=== PATIENT | male | born 1975 | race Caucasian/White ===

== ENCOUNTER → 2016-09-15 | Outpatient (CLI) | payer OTHER ==
[~2016-09-15] MED LIST: CENTTAB47 PO; HYDR-3713 PO; OXYC-299 PO; PERC5TAB6 PO
[2016-09-15 13:19] LABS: ALBUMIN 3.8 GM/DL (3.2-5.2); ALBUMIN/GLOBULIN RATIO 1.31 (1.00-1.93); ALKALINE PHOSPHATASE 74 U/L (45-117); ALT/SGPT 31 U/L (12-78); ANION GAP 5 MEQ/L (8-16); AST/SGOT 21 U/L (15-37); BILIRUBIN,TOTAL 0.2 MG/DL (0.2-1.0); BLOOD UREA NITROGEN 8 MG/DL (7-18); CALCIUM LEVEL 8.9 MG/DL (8.5-10.1); CARBON DIOXIDE LEVEL 33 MEQ/L (21-32); CHLORIDE LEVEL 106 MEQ/L (98-107); CHOLESTEROL LEVEL 161 MG/DL (<200); CREATININE FOR GFR 0.98 MG/DL (0.70-1.30); GLOMERULAR FILTRATION RATE > 60.0 (>60); GLUCOSE, FASTING 103 MG/DL (70-105); POTASSIUM SERUM 4.7 MEQ/L (3.5-5.1); SODIUM LEVEL 144 MEQ/L (136-145); TOTAL PROTEIN 6.7 GM/DL (6.4-8.2); TRIGLYCERIDES LEVEL 592 MG/DL (<150)
== END ==
LOC: M LRY 11:08
PROVIDERS: ATTEND Internal Medicine Cardiovascular Disease
DX: I48.91 Unspecified atrial fibrillation (principal)

== ENCOUNTER → 2017-01-25 | Outpatient (CLI) | payer OTHER ==
[~2017-01-25] MED LIST changes: +OXYC-141 PO; -OXYC-299 PO; +PERC5TAB12 PO; -PERC5TAB6 PO
[2017-01-25 14:17] LABS: ALBUMIN 4.3 GM/DL (3.2-5.2); ALBUMIN/GLOBULIN RATIO 1.39 (1.00-1.93); ALKALINE PHOSPHATASE 71 U/L (45-117); ALT/SGPT 37 U/L (12-78); ANION GAP 6 MEQ/L (8-16); AST/SGOT 19 U/L (15-37); BILIRUBIN,TOTAL 0.5 MG/DL (0.2-1.0); BLOOD UREA NITROGEN 12 MG/DL (7-18); CARBON DIOXIDE LEVEL 31 MEQ/L (21-32); CHLORIDE LEVEL 105 MEQ/L (98-107); CHOLESTEROL LEVEL 181 MG/DL (<200); CREATININE FOR GFR 0.91 MG/DL (0.70-1.30); GLOMERULAR FILTRATION RATE > 60.0 (>60); GLUCOSE, FASTING 86 MG/DL (70-105); POTASSIUM SERUM 4.8 MEQ/L (3.5-5.1); SODIUM LEVEL 142 MEQ/L (136-145); TOTAL PROTEIN 7.4 GM/DL (6.4-8.2); TRIGLYCERIDES LEVEL 369 MG/DL (<150)
== END ==
LOC: M LRY 11:01
PROVIDERS: ATTEND Internal Medicine Cardiovascular Disease
DX: E78.1 Pure hyperglyceridemia (principal)

== ENCOUNTER → 2017-02-14 | Outpatient (CLI) | payer OTHER ==
[2017-02-14 18:21] LABS: BLOOD UREA NITROGEN 12 MG/DL (7-18); CREATININE FOR GFR 0.97 MG/DL (0.70-1.30); GLOMERULAR FILTRATION RATE > 60.0 (>60)
== END ==
LOC: M LRY 12:48
PROVIDERS: ATTEND Physical Medicine & Rehabilitation
DX: M47.892 Other spondylosis, cervical region (principal)

== ENCOUNTER → 2017-04-27 | Outpatient (CLI) | payer OTHER ==
--- NOTE | 2017-05-09 23:36 | ECWPNPC ---
PATIENT NAME: BILL MICHAUD : 1975 GENDER: MALE VISIT DATE: 04/27/2017 DISCHARGE DATE: 04/27/17 1646 VISIT LOCKED DATE TIME: PHYSICIAN: GABY RAY RESOURCE: GABY RAY REASON FOR APPOINTMENT 1. NECK HISTORY OF PRESENT ILLNESS FALL RISK SCREENING: SCREENING :NO FALLS IN THE PAST YEAR 41 Y/O PATIENT WITH A HISTORY OF NECK PAIN. PATIENT DESCRIBES THE PAIN ACHING, SHARP, STABBING, SHOOTING, AND HAVING IT ALL THE TIME WITH A PAIN SCALE OF 6/10. PATIENT REPORTS THE PAIN IN HIS NECK TRAVELS UP THE BACK OF HIS HEAD AND THAT HE HAS NUMBNESS DOWN HIS LEFT ARM MAINLY IN HIS PINKIE. PATIENT WAS EMPOYED BY [employer]. PATIENT STATES THAT ON April HE WAS WORKING WITH [employer] AND IT FELL ON HIS HEAD/NECK. PATIENT HAD PHYSICAL THERAPY FOR 1 YEAR AND STATES THAT IT WORKED, BUT WHEN HE STOPPED BEING ABLE TO GO THE PAIN CAME BACK. PATIENT HAD NECK SURGERY IN APRIL 2015, HE STATES THAT AFTER 6 MONTHS HE WAS GOOD BUT NOW THE PAIN IS COMING BACK. PATIENT DENIES UNEXPLAINABLE WEIGHT LOSS, FEVER, CHILLS, NEW CHANGES ON HIS URINARY OR BOWEL CONTROL. PAIN SCREENING: PATIENT HAS A COMPLAINT OF ACUTE OR CHRONIC PAIN :YES CURRENT MEDICATIONS TAKING METOPROLOL TARTRATE 25 MG TABLET 1 TABLET WITH FOOD ORALLY BID TAKING AMITRIPTYLINE HCL 10 MG TABLET 1-2 TABLETS ORALLY QHS TAKING MOBIC 15 MG TABLET 1 TABLET ORALLY ONCE A DAY PRN TAKING TIZANIDINE HCL 4 MG TABLET 1 TABLET NEEDED ORALLY THREE TIMES A DAY PRN NOT-TAKING GABAPENTIN 300 MG CAPSULE 1 CAPSULE ORALLY THREE TIMES A DAY NOT-TAKING KETOROLAC TROMETHAMINE 10 MG TABLET 1 TABLET WITH FOOD OR MILK NEEDED ORALLY EVERY 6 HRS MEDICATION LIST REVIEWED AND RECONCILED WITH THE PATIENT PAST MEDICAL HISTORY 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 SURGICAL HISTORY CARPELTUNNEL ON LEFT HAND EAR TUBES T&A ACFD C5-7 NCOG 2014 FAMILY HISTORY FATHER: ALIVE 70 YRS MOTHER: ALIVE 68 YRS, DIAGNOSED WITH HYPERTENSION, HEART DISEASE, CANCER PATERNAL GRAND FATHER: 98 YRS, DIAGNOSED WITH PSYCHIATRIC CONDITIONS PATERNAL GRAND MOTHER: , DIAGNOSED WITH HEART DISEASE MATERNAL GRAND FATHER: , DIAGNOSED WITH HEART DISEASE MATERNAL GRAND MOTHER: 1 BROTHER(S) , 3 SISTER(S) - HEALTHY. 2DAUGHTER(S) - HEALTHY. SOCIAL HISTORY GENERAL: TOBACCO USE ARE YOU A:CURRENT SMOKER ARE YOU INTERESTED IN QUITTING?NOT READY TO QUIT COUNSELED THE PATIENT ON SMOKING EFFECTS, EDUCATION [id number]/13/2017 HOW MANY CIGARETTES A DAY DO YOU SMOKE?11-20 HOW SOON AFTER YOU WAKE UP DO YOU SMOKE YOUR FIRST CIGARETTE?WITHIN 5 MIN HOW OFTEN DO YOU SMOKE CIGARETTES?EVERY DAY PATIENT COUNSELED ON THE DANGERS OF TOBACCO USE AND URGED TO QUIT:04/27/2017 LUNG CANCER SCREENING SMOKING STATUS:CURRENT SMOKER BMI CARE GOAL FOLLOW-UP ABOVE NORMAL BMI FOLLOW-UPDIETARY MANAGEMENT EDUCATION, GUIDANCE, AND COUNSELING, DIETARY NEEDS EDUCATION ALCOHOL SCREENING POINTS0 INTERPRETATIONNEGATIVE RECREATIONAL DRUG USE DENIES. CAFFEINE OCCASIONAL ONLY. 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 EXERCISE: NO REGULAR EXERCISE. MARITAL STATUS: . OTHERS AT HOME: SPOUSE, CHILDREN. PETS: DOG, CAT. YAZDANISM NO JEW BELIEFS THAT WOULD IMPACT HEALTH CARE. LANGUAGE WOLOF. EDUCATION HIGHSCHOOL. LEARNING BARRIERS / SPECIAL NEEDS BARRIERS TO LEARNING?NO HEARING IMPAIRED?NO VISION IMPAIRED?YES :CORRECTIVE LENSES CONTACTS/GLASSES COGNITIVELY IMPAIRED?NO READINESS TO LEARN?YES LEARNING PREFERENCES?NO LEARNING CAPABILITIES PRESENT?YES EMOTIONAL BARRIERS?NO SPECIAL DEVICES?NO EDUCATIONAL FUNDRAISING DIRECTOR NEEDED?NO PAIN CLINIC PFS, CLERGY, PUBLIC HEALTH REFERRALS HAS THE PATIENT BEEN EDUCATED REGARDING HIS/HER PLAN OF CARE?YES HAS THE PATIENT BEEN EDUCATED REGARDING PAIN, THE RISK FOR PAIN, THE IMPORTANCE OF EFFECTIVE PAIN MANAGEMENT, AND THE PAIN ASSESSMENT PROCESS?YES ADVANCE DIRECTIVES HEALTH CARE PROXY?NO DO YOU HAVE A DNR?NO LIVING WILL?NO POWER OF BAG SEWER?NO TRAVEL OUTSIDE US: NO. HOUSING: OWNS HOME. DOMESTIC VIOLENCE NONE. HOSPITALIZATION/MAJOR DIAGNOSTIC PROCEDURE ABOVE REVIEW OF SYSTEMS REVIEWED BY: PROVIDER: GABY RAY MD . CONSTITUTIONAL: ANY CHANGE IN YOUR MEDICAL CONDITION? NO . CHILLS NO . FEVER NO . INFECTION: DO YOU HAVE NEW INFECTIONS? NO . DO YOU HAVE HISTORY OF MRSA? NO . MUSCULOSKELETAL: ANY NEW PATTERNS OF PAIN OR NUMBNESS? NO . SYTEMIC LUPUS NO . GASTROENTEROLOGY: ANY NEW CHANGE IN BOWEL CONTROL? NO . BARRETTS ESOPHAGUS NO . CIRRHOSIS NO . HEPATITIS NO . LIVER FAILURE NO . ACID REFLUX NO . UNEXPLAINED WEIGHT LOSS NO . GENITOURINARY: ANY NEW CHANGE IN BLADDER CONTROL? NO . IS THERE A CHANCE YOU COULD BE ? NO . HEMATOLOGY/LYMPH: DO YOU TAKE ANY BLOOD THINNERS? (FOR EXAMPLE- COUMADIN, PLAVIX, AGGRENOX, PLATEL, PRADAXA, OR XARELTO) NO . WHEN WAS YOUR LAST DOSE? DATE: TIME: . LOW PLATELET COUNT NO . SICKLE CELL DISEASE NO . VON WILLIEBRANDS NO . FACTOR V LEIDEN NO . THALLASEMIA NO . ANEMIA NO . EASY BRUISING NO . NEUROLOGY: HAVE YOU FALLEN IN THE PAST 6 MONTHS? NO . ANY NEW EXTREMITY NUMBNESS OR WEAKNESS? NO . HEAD INJURY NO . DEMENTIA NO . CEREBRAL PALSY NO . MULTIPLE SCLEROSIS NO . DIZZINESS NO . HEADACHE NO . STROKES NO . VERTIGO NO . CARDIOLOGY: DO YOU HAVE A PACEMAKER OR DEFIBRILLATOR? NO . ANGINA NO . HEART ATTACK NO . HEART SURGERY NO . CONGESTIVE HEART FAILURE/FLUID OVERLOAD NO . CHEST PAIN NO . HIGH BLOOD PRESSURE NO . IRREGULAR HEART BEAT NO . RESPIRATORY: HAVE YOU BEEN SICK IN THE PAST WEEK? NO . FEVER NO . FLU LIKE SYMPTOMS? NO . CPAP NO . BYPAP NO . ASTHMA NO . EMPHYSEMA NO . CHRONIC LUNG DISEASES NO . SHORTNESS OF BREATH ON EXERTION NO . COUGH NO . SNORING NO . INTEGUMENTARY: DO YOU HAVE ANY RASHES OR OPEN SORES? NO . ALLERGIC/IMMUNO: ARE YOU ALLERGIC TO SHELLFISH OR IV DYE? NO . ANY NEW ALLERGIES? NO . PSYCHIATRIC: DO YOU HAVE THOUGHTS OF HURTING YOURSELF OR SOMEONE ELSE? NO . ARE YOU ABUSED, NEGLECTED, OR IN AN UNSAFE ENVIRONMENT? NO . ENDOCRINOLOGY: ARE YOU DIABETIC? NO . THYROID DISORDER NO . OTHER: DO YOU NEED ANY PRESCRIPTIONS? NO . IF YES, PLEASE LIST: ____ . ANY NEW PROBLEMS WITH YOUR MEDICATIONS? NO . WHEN DID YOU LAST EAT? ____ . WHEN DID YOU LAST DRINK? ____ . WHAT DID YOU LAST DRINK? ____ . NAME OF PERSON DRIVING YOU HOME? ____ . DO YOU HAVE ANY OTHER QUESTIONS OR CONCERNS NO . VITAL SIGNS WT 224.8 LBS, HT 72 IN, BMI 30.49 INDEX, BP 116/69 MM HG, HR 77 /MIN, RR 16 /MIN, TEMP 96.9 F, OXYGEN SAT % 98%, NA INITIALS TL 1456, REVIEWED BY: EM. EXAMINATION : THE PATIENT IS ALERT OX3 AND COOPERATIVE. LUNGS ARE CLEAR, TO AUSCULTATION. HEART NO MURMURS OR GALLOPS; FACIAL CRANIAL NERVES ARE GROSSLY NORMAL. GOOD SYMMETRY OF FACIAL MUSCLE MOVEMENT. NORMAL VISUAL BRYAN. ABDOMINAL SOFT AND DEPRESSIBLE. LEFT ARM IS WEAKER THAN THE RIGHT ARM. LEFT HAND INPATIENT NURSING AIDE IS WEAKER THAN THE RIGHT HAND INPATIENT NURSING AIDE. NECK EXTEND 40 DEGREES, FLEX 5 DEGREES, TO THE LEFT SIDE 30 DEGREES TO THE RIGHT SIDE 45 DEGREES. LEFT SIDE EXTENSION CAUSING DISCOMFORT IN THE NECK WITH PAIN SHOOTING DOWN THE ARM. CERVICAL MRI FROM 03/09/16 SHOWS FUSION C5-C6, C6-C7. DISC PROTRUSION C4-C5. 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 PATIENT WILL START IBUPROFEN TABLET, 800 MG, 1 TABLET WITH FOOD OR MILK NEEDED, ORALLY NEEDED FOR PAIN, THREE TIMES A DAY, AND CYCLOBENZAPRINE HCL TABLET, 10 MG, 1 TABLET NEEDED, ORALLY FOR SPASMS AND PAIN, BEFORE BEDTIME. HE WILL CONTINUE IN GABAPENTIN. I DISCUSSED ALL THE RISK AND CHARACTERISTICS OF THESE MEDICATIONS WITH THE PATIENT. PATIENT MAY CONSIDER ADDING CYMBALTA IN THE FUTURE. WE DISCUSSED A CERVICAL FACET THERAPEUTIC TO BE DONE POSSIBLY IN THE FUTURE .PATIENT HAS AN APPOINTMENT WITH DR. KIDD NEXT WEEK FOR A TRIGGER POINT INJECTION FOR THE MUSCLE PAIN. THE PATIENT IS INTERESTED IN A SURGICAL CONSULT. I WILL REFER TO THE NEUROSURGICAL SERVICE FOR AN EVALUATION. PATIENT STATES THAT THEY DO NOT WANT PHYSICAL THERAPY AT THIS TIME SINCE THEY ARE ACTIVE AT HOME. WE ALSO DISCUSSED ON ACUPUNCTURE. PATIENT WILL CONTINUE WITH THE MEDICATION MANAGEMENT AND WILL RETURN FOR A FOLLOW UP IN 6 WEEKS. I, SOCO CENTENO, DOCUMENTED THE ABOVE INFORMATION ACTING A SCRIBE FOR DR. RAY. I HAVE REVIEWED THE ABOVE DOCUMENT, WRITTEN BY SOCO ARTEAGA AND I VERIFY THAT IT IS ACCURATE. OTHERS START IBUPROFEN TABLET, 800 MG, 1 TABLET WITH FOOD OR MILK NEEDED, ORALLY NEEDED FOR PAIN, THREE TIMES A DAY, 30 DAY(S), 85, REFILLS 1 START CYCLOBENZAPRINE HCL TABLET, 10 MG, 1 TABLET NEEDED, ORALLY FOR SPASMS AND PAIN, BEFORE BEDTIME, 30 DAY(S), 30, REFILLS 1 PROCEDURES PN WORKMANS' COMP OPINION IN YOUR OPINION, WAS THE INCIDENT THAT THE PATIENT DESCRIBED THE COMPETENT MEDICAL CAUSE OF THIS INJURY/ILLNESS? YES ARE THE PATIENT'S COMPLAINTS CONSISTENT WITH HIS/HER HISTORY OF THE INJURY/ILLNESS? YES IS THE PATIENT'S HISTORY OF THE INJURY/ILLNESS CONSISTENT WITH YOUR OBJECTIVE FINDING? YES WHAT IS THE PERCENTAGE OF TEMPORARY IMPAIRMENT? MODERATE TO MARKED = 66.7% DOCTOR ON SITE: GABY CHUA MD PROCEDURE CODES FA211 ESTABILISHED PATIENT [facility] CHARGE G8730 PAIN ASSESS POS TOOL F/U PLAN DOC G8427 DOC MEDS VERIFIED W/PT OR RE DISPOSITION & COMMUNICATION FOLLOW UP 6 WEEKS ELECTRONICALLY SIGNED BY GABY RAY MD ON 05/09/2017 AT 06:34 PM EST DISCLAIMER : THIS IS A VISIT SUMMARY EXTRACTED FROM THE [employer] CHART. IT IS NOT A COPY OF THE [employer] PROGRESS NOTE. COLLINS
== END ==
LOC: M PAIN 14:45
PROVIDERS: ATTEND Anesthesiology
DX: M54.2 Cervicalgia (principal); M46.92 Unspecified inflammatory spondylopathy, cervical region; F17.210 Nicotine dependence, cigarettes, uncomplicated; Z79.899 Other long term (current) drug therapy

== ENCOUNTER → 2017-07-04 | Outpatient (CLI) | payer OTHER | LOC: M LRY 13:15 | DX: Z77.090 Contact with and (suspected) exposure to asbestos (principal) | CPT/HCPCS: 71046 ==

== ENCOUNTER → 2017-08-03 | Outpatient (CLI) | payer OTHER | LOC: M LRY 11:06 | DX: M54.2 Cervicalgia (principal) | CPT/HCPCS: 72040 ==

== ENCOUNTER → 2017-08-17 | Outpatient (CLI) | payer OTHER | LOC: M PAIN 11:00 | DX: M50.20 Other cervical disc displacement, unspecified cervical region (principal); M54.81 Occipital neuralgia; M96.1 Postlaminectomy syndrome, not elsewhere classified; F17.210 Nicotine dependence, cigarettes, uncomplicated; Z79.899 Other long term (current) drug therapy | CPT/HCPCS: G0463 ==

== ENCOUNTER → 2017-09-14 | Outpatient (CLI) | payer OTHER | LOC: M PAIN 10:15 | DX: M50.20 Other cervical disc displacement, unspecified cervical region (principal); M54.81 Occipital neuralgia; M96.1 Postlaminectomy syndrome, not elsewhere classified; Z79.899 Other long term (current) drug therapy; Z87.891 Personal history of nicotine dependence | CPT/HCPCS: G0463 ==

== ENCOUNTER → 2017-12-20 | Outpatient (CLI) | payer OTHER | LOC: M PAIN 09:15 | DX: M50.20 Other cervical disc displacement, unspecified cervical region (principal); M54.81 Occipital neuralgia; G89.29 Other chronic pain; M96.1 Postlaminectomy syndrome, not elsewhere classified; F17.210 Nicotine dependence, cigarettes, uncomplicated; Z79.899 Other long term (current) drug therapy | CPT/HCPCS: G0463 ==

== ENCOUNTER → 2018-02-23 | Outpatient (CLI) | payer OTHER | LOC: M PAIN 11:00 | DX: M50.20 Other cervical disc displacement, unspecified cervical region (principal); M54.81 Occipital neuralgia; M47.22 Other spondylosis with radiculopathy, cervical region; M96.1 Postlaminectomy syndrome, not elsewhere classified; M47.12 Other spondylosis with myelopathy, cervical region; F17.210 Nicotine dependence, cigarettes, uncomplicated; Z79.899 Other long term (current) drug therapy | CPT/HCPCS: G0463 ==

== ENCOUNTER → 2018-05-23 | Outpatient (CLI) | payer OTHER ==
--- NOTE | 2018-06-07 01:10 | ECWPNPC ---
PATIENT NAME: BILL MICHAUD : 1975 GENDER: MALE VISIT DATE: 05/23/2018 DISCHARGE DATE: 05/23/18 1532 VISIT LOCKED DATE TIME: PHYSICIAN: GABY RAY MD RESOURCE: GABY RAY MD REASON FOR APPOINTMENT 1. WC NECK HISTORY OF PRESENT ILLNESS HISTORY OF PRESENT ILLNESS: PAIN THE PATIENT DESCRIBES THE PAIN... 42 YEAR OLD MALE PATIENT WITH A HISTORY OF CHRONIC NECK PAIN. THE PATIENT DESCRIBES THE PAIN ACHING, BURNING, SORE, TENDER, SHARP, STABBING, SHOOTING, AND CONTINUOUS WITH A PAIN SCORE OF 3-5/10 DEPENDING ON PHYSICAL ACTIVITY. 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 THE PATIENT CONTINUED TO WORK FOR A YEAR AND THEN WAS TAKEN OUT OF WORK. THE PATIENT SAYS HIS PAIN STARTS IN HIS NECK AREA AND RADIATES DOWN INTO HIS ARMS AND UP INTO HIS HEAD. THE PATIENT HAD NECK SURGERY AND SAYS HE HAD NO PAIN FOR 6 MONTHS, BUT THE PAIN RETURNED. THE PATIENT HAS TRIED PHYSICAL THERAPY IN THE PAST AND SAYS THAT IT HELPED A LITTLE. THE PATIENT SAYS THAT HE HAS DIFFICULTY WITH REPETITIVE MOVEMENT. THE PATIENT IS CURRENTLY USING IBUPROFEN TO AID IN HIS PAIN RELIEF. PATIENT DENIES UNEXPLAINABLE WEIGHT LOSS, FEVER, CHILLS, NEW CHANGES ON HIS URINARY OR BOWEL CONTROL. FALL RISK SCREENING: SCREENING :NO FALLS IN THE PAST YEAR CURRENT MEDICATIONS TAKING METOPROLOL TARTRATE 25 MG TABLET 1 TABLET WITH FOOD ORALLY BID TAKING IBUPROFEN 800 MG TABLET 1 TABLET WITH FOOD OR MILK NEEDED ORALLY NEEDED FOR PAIN THREE TIMES A DAY NOT-TAKING [id number] 50-325-40 MG CAPSULE 1 CAPSULE NEEDED ORALLY EVERY 4 HRS PRN NECK SOMATIC PAIN MDD=2 NOT-TAKING DULOXETINE HCL 30 MG CAPSULE DELAYED RELEASE PARTICLES 1 CAPSULE ORALLY ONCE A DAY FOR NEURPATHIC PAIN NOT-TAKING OXYCODONE-ACETAMINOPHEN 5-325 MG TABLET 1 TABLET NEEDED ORALLY EVERY 6 HRS, NOTES: ELBOW SURGERY 3 WEEKS AGO NOT-TAKING CYCLOBENZAPRINE HCL 10 MG TABLET 1 TABLET NEEDED ORALLY FOR SPASMS AND PAIN BEFORE BEDTIME NOT-TAKING TIZANIDINE HCL 4 MG TABLET 1 TABLET NEEDED ORALLY THREE TIMES A DAY PRN NOT-TAKING GABAPENTIN 300 MG CAPSULE 1 CAPSULE ORALLY FOR PAIN THREE TIMES A DAY NOT-TAKING AMITRIPTYLINE HCL 10 MG TABLET 1-2 TABLETS ORALLY QHS NOT-TAKING MOBIC 15 MG TABLET 1 TABLET ORALLY ONCE A DAY PRN NOT-TAKING KETOROLAC TROMETHAMINE 10 MG TABLET 1 TABLET WITH FOOD OR MILK NEEDED ORALLY EVERY 6 HRS MEDICATION LIST REVIEWED AND RECONCILED WITH THE PATIENT PAST MEDICAL HISTORY 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 SURGICAL HISTORY CARPELTUNNEL ON LEFT HAND EAR TUBES T&A ACFD C5-7 NCOG (ANTERIOR CERVICAL FUSION) 2014 LEFT ELBOW SURGERY 10/2017 FAMILY HISTORY FATHER: ALIVE 70 YRS MOTHER: ALIVE 68 YRS, DIAGNOSED WITH HYPERTENSION, HEART DISEASE, CANCER PATERNAL GRAND FATHER: 98 YRS, DIAGNOSED WITH PSYCHIATRIC CONDITIONS PATERNAL GRAND MOTHER: , DIAGNOSED WITH HEART DISEASE MATERNAL GRAND FATHER: , DIAGNOSED WITH HEART DISEASE MATERNAL GRAND MOTHER: 1 BROTHER(S) , 3 SISTER(S) - HEALTHY. 2DAUGHTER(S) - HEALTHY. SOCIAL HISTORY GENERAL: TOBACCO USE ARE YOU A:CURRENT SMOKER ARE YOU INTERESTED IN QUITTING?NOT READY TO QUIT COUNSELED THE PATIENT ON SMOKING EFFECTS, EDUCATION [id number]/11/2018 HOW MANY CIGARETTES A DAY DO YOU SMOKE?11-20 HOW SOON AFTER YOU WAKE UP DO YOU SMOKE YOUR FIRST CIGARETTE?WITHIN 5 MIN HOW OFTEN DO YOU SMOKE CIGARETTES?EVERY DAY PATIENT COUNSELED ON THE DANGERS OF TOBACCO USE AND URGED TO QUIT:02/23/2018 LUNG CANCER SCREENING SMOKING STATUS:CURRENT SMOKER NOT INTERESTED IN QUITTING OF 08/17/17 BMI CARE GOAL FOLLOW-UP ABOVE NORMAL BMI FOLLOW-UPDIETARY MANAGEMENT EDUCATION, GUIDANCE, AND COUNSELING, DIETARY NEEDS EDUCATION ALCOHOL SCREENING DID YOU HAVE A DRINK CONTAINING ALCOHOL IN THE PAST YEAR?NO POINTS0 INTERPRETATIONNEGATIVE RECREATIONAL DRUG USE DENIES. CAFFEINE OCCASIONAL ONLY. HIV / HEP-C SCREENING HIV TEST OFFERED TO PATIENT:YES DATE OFFERED:11/26/2016 TEST ACCEPTED:NO REASON:PATIENT DECLINED HEP-C TEST OFFERED TO PATIENT:NO SAMARITAN NO SYNAGOGUE BELIEFS THAT WOULD IMPACT HEALTH CARE. LANGUAGE YORUBA. EDUCATION HIGHSCHOOL. LEARNING BARRIERS / SPECIAL NEEDS BARRIERS TO LEARNING?NO HEARING IMPAIRED?NO VISION IMPAIRED?YES :CORRECTIVE LENSES CONTACTS/GLASSES COGNITIVELY IMPAIRED?NO READINESS TO LEARN?YES LEARNING PREFERENCES?NO LEARNING CAPABILITIES PRESENT?YES EMOTIONAL BARRIERS?NO SPECIAL DEVICES?NO SHERIFF'S DETECTIVE NEEDED?NO DOMESTIC VIOLENCE NONE. 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 EXERCISE: NO REGULAR EXERCISE. MARITAL STATUS: . OTHERS AT HOME: SPOUSE, CHILDREN. PAIN CLINIC PFS, CLERGY, PUBLIC HEALTH REFERRALS HAS THE PATIENT BEEN EDUCATED REGARDING HIS/HER PLAN OF CARE?YES HAS THE PATIENT BEEN EDUCATED REGARDING PAIN, THE RISK FOR PAIN, THE IMPORTANCE OF EFFECTIVE PAIN MANAGEMENT, AND THE PAIN ASSESSMENT PROCESS?YES HOUSING: OWNS HOME. ADVANCE DIRECTIVE ADVANCE DIRECTIVE DISCUSSED WITH PATIENT:YES NO ADVANCED DIRECTIVES, PT DECLINES INFORMATION AT THIS TIME. ASSISTANCE OFFERED WITH FILLING OUT FORM, PT DECLINES. 05/23/18 REVIEWED WITH PT 12/20/17 0925 LASREVIEWED WITH PT 02/23/18 1206 LASREVIEWED WITH PT 05/23/18 1346 BV. HOSPITALIZATION/MAJOR DIAGNOSTIC PROCEDURE SEE ABOVE REVIEW OF SYSTEMS REVIEWED BY: PROVIDER: GABY RAY MD . CONSTITUTIONAL: ANY CHANGE IN YOUR MEDICAL CONDITION? NO . CHILLS NO . FEVER NO . INFECTION: DO YOU HAVE NEW INFECTIONS? NO . DO YOU HAVE HISTORY OF MRSA? NO . MUSCULOSKELETAL: ANY NEW PATTERNS OF PAIN OR NUMBNESS? NO . GASTROENTEROLOGY: ANY NEW CHANGE IN BOWEL CONTROL? NO . GENITOURINARY: ANY NEW CHANGE IN BLADDER CONTROL? NO . IS THERE A CHANCE YOU COULD BE ? NO . HEMATOLOGY/LYMPH: DO YOU TAKE ANY BLOOD THINNERS? (FOR EXAMPLE- COUMADIN, PLAVIX, AGGRENOX, PLATEL, PRADAXA, OR XARELTO) NO . WHEN WAS YOUR LAST DOSE? DATE: TIME: . NEUROLOGY: HAVE YOU FALLEN IN THE PAST 6 MONTHS? NO . ANY NEW EXTREMITY NUMBNESS OR WEAKNESS? NO . CARDIOLOGY: DO YOU HAVE A PACEMAKER OR DEFIBRILLATOR? NO . RESPIRATORY: HAVE YOU BEEN SICK IN THE PAST WEEK? NO . FEVER NO . FLU LIKE SYMPTOMS? NO . COUGH YES, PT STATES HE HAD INTERMITTENT DRY COUGH LAST WEEK, SYMPTOMS HAVE SINCE RESOLVED, DENIES ANY FEVER. . INTEGUMENTARY: DO YOU HAVE ANY RASHES OR OPEN SORES? NO . ALLERGIC/IMMUNO: ARE YOU ALLERGIC TO SHELLFISH OR IV DYE? NO . ANY NEW ALLERGIES? NO . PSYCHIATRIC: DO YOU HAVE THOUGHTS OF HURTING YOURSELF OR SOMEONE ELSE? NO . ARE YOU ABUSED, NEGLECTED, OR IN AN UNSAFE ENVIRONMENT? NO . ENDOCRINOLOGY: ARE YOU DIABETIC? NO . OTHER: DO YOU NEED ANY PRESCRIPTIONS? YES, IBUPROFEN 800 . IF YES, PLEASE LIST: ____ . ANY NEW PROBLEMS WITH YOUR MEDICATIONS? NO . WHEN DID YOU LAST EAT? ____ . WHEN DID YOU LAST DRINK? ____ . WHAT DID YOU LAST DRINK? ____ . NAME OF PERSON DRIVING YOU HOME? ____ . DO YOU HAVE ANY OTHER QUESTIONS OR CONCERNS NO . VITAL SIGNS WT 221 LBS, HT 72 IN, BMI 29.97 INDEX, BP 136/83 MM HG, HR 98 /MIN, RR 16 /MIN, TEMP 97.7 F, OXYGEN SAT % 97%, NA INITIALS AW 1340, REVIEWED BY: BV. EXAMINATION GENERAL EXAMINATION: PATIENT IS ALERT O X 3 AND COOPERATIVE. TENDERNESS OVER THE NECK AREA. PRESENCE OF TRIGGER POINTS AND BANDS OF TISSUE WITH RESTRICTION OF MOVEMENT OF THE NECK. PATIENT CAN ABDUCT THE UPPER EXTREMITIES TO THE SHOULDER LEVEL. ASSESSMENTS MYALGIA, OTHER SITE - M79.18 (PRIMARY) CERVICALGIA - M54.2 TREATMENT MYALGIA, OTHER SITE CLINICAL NOTES: WE DISCUSSED SEVERAL ISSUES WITH MR. MICHAUD'S PAIN MANAGEMENT CASE. I WOULD LIKE THE PATIENT TO START USING CELEBREX IN PLACE OF THE IBUPROFEN BECAUSE HE HAS BEEN USING A LOT OF IT AND HAS BEEN EXPERIENCING SOME STOMACH PAIN. DUE TO THE TRIGGER POINTS, BANDS OF TISSUE, AND RESTRICTION OF MOVEMENT, I WOULD LIKE TO MOVE FORWARD WITH A TRIGGER POINT INJECTION AT THIS TIME. WE DISCUSSED THE BENEFITS, RISKS, AND ALTERNATIVES OF THE INJECTION AND THE PATIENT WOULD LIKE TO PROCEED. I WILL ALSO REFER THE PATIENT TO DR. CARBAJAL TO CONSIDER TRYING MEDICAL MARIJUANA. THE PATIENT WILL FOLLOW UP IN 2 MONTHS. INSTRUCTIONS WERE GIVEN, QUESTIONS WERE ANSWERED, PATIENT REPORTS UNDERSTANDING AND AGREES WITH THE PLAN. I, REG LANGFORD, DOCUMENTED THE ABOVE INFORMATION ACTING A SCRIBE FOR DR. RAY. I HAVE REVIEWED THE ABOVE DOCUMENT, WRITTEN BY REG HOROWITZIBLatesha AND I VERIFY THAT IT IS ACCURATE. OTHERS START CELEBREX CAPSULE, 200 MG, 1 CAPSULE WITH FOOD, ORALLY FOR FOOD, ONCE A DAY, 30 DAY(S), 30, REFILLS 1 NOTES: TRIGGER POINT INJECTION: YOUR EXPERIENCE MATERIAL WAS PRINTED,TRIGGER POINT INJECTION MATERIAL WAS PRINTED. PROCEDURES PN WORKMANS' COMP OPINION IN YOUR OPINION, WAS THE INCIDENT THAT THE PATIENT DESCRIBED THE COMPETENT MEDICAL CAUSE OF THIS INJURY/ILLNESS? YES ARE THE PATIENT'S COMPLAINTS CONSISTENT WITH HIS/HER HISTORY OF THE INJURY/ILLNESS? YES IS THE PATIENT'S HISTORY OF THE INJURY/ILLNESS CONSISTENT WITH YOUR OBJECTIVE FINDING? YES WHAT IS THE PERCENTAGE OF TEMPORARY IMPAIRMENT? MODERATE TO MARKED = 66.7% IS THE PATIENT WORKING? NO DOCTOR ON SITE: GABY CHUA MD PREVENTIVE MEDICINE PAIN CLINIC TEACHING: MEDICATIONS NEW MEDICATION CELEBREX INSTRUCTIONS PROVIDED TO PT. USAGE DISCUSSED INCLUDING NOT TO TAKE IBUPROFEN WHILE TAKING CELEBREX. VERBALIZED UNDERSTANDING.. PROCEDURE TEACHING PRE PROCEDURE INSTRUCTIONS REVIEWED WITH PT. VERBALIZED UNDERSTANDING.. PROCEDURE CODES FA211 ESTABILISHED PATIENT [facility] CHARGE G8427 CURRENT MEDS W/DOSAGES DOCUMENTED G8730 PAIN ASSESS POS TOOL F/U PLAN DOC DISPOSITION & COMMUNICATION FOLLOW UP 2 MONTHS ELECTRONICALLY SIGNED BY GABY RAY MD, MD ON 06/06/2018 AT 01:23 PM EST DISCLAIMER : THIS IS A VISIT SUMMARY EXTRACTED FROM THE [employer] CHART. IT IS NOT A COPY OF THE [employer] PROGRESS NOTE. COLLINS
== END ==
LOC: M PAIN 13:45
PROVIDERS: ATTEND Anesthesiology
DX: M79.18 Myalgia, other site (principal); M54.2 Cervicalgia; F17.210 Nicotine dependence, cigarettes, uncomplicated; Z79.899 Other long term (current) drug therapy

== ENCOUNTER → 2018-07-20 | Outpatient (CLI) | payer OTHER ==
[~2018-07-20] MED LIST changes: +BUPIVACAINE HCL 0.25% 10 ML VIAL As Ordered ONE; +BUPIVACAINE HCL 0.25% 30 ML VIAL As Ordered ONE; +TRIAMCINOLONE ACETONIDE SUSP 40 MG/ML VIAL (J3301) As Ordered ONE; +diazePAM 5 MG TAB As Ordered ONE; +oxyCODONE 5MG TAB As Ordered ONE
--- NOTE | 2018-08-06 23:41 | ECWPNPC ---
PATIENT NAME: BILL MICHAUD : 1975 GENDER: MALE VISIT DATE: 07/20/2018 DISCHARGE DATE: 07/20/18 1618 VISIT LOCKED DATE TIME: PHYSICIAN: GABY RAY MD RESOURCE: GABY RAY MD REASON FOR APPOINTMENT 1. TPI NECK HISTORY OF PRESENT ILLNESS HISTORY OF PRESENT ILLNESS: PAIN THE PATIENT DESCRIBES THE PAIN... FALL RISK SCREENING: SCREENING : NO FALLS IN THE PAST YEAR. CURRENT MEDICATIONS TAKING IBUPROFEN 800 MG TABLET 1 TABLET WITH FOOD OR MILK NEEDED ORALLY NEEDED FOR PAIN THREE TIMES A DAY, NOTES: 3-4 DAYS TAKING [id number] 50-325-40 MG CAPSULE 1 CAPSULE NEEDED ORALLY EVERY 4 HRS PRN NECK SOMATIC PAIN MDD=2, NOTES: FEW WEEKS AGO NOT-TAKING CELEBREX 200 MG CAPSULE 1 CAPSULE WITH FOOD ORALLY FOR FOOD ONCE A DAY, NOTES: NONE RECENTLY NOT-TAKING METOPROLOL TARTRATE 25 MG TABLET 1 TABLET WITH FOOD ORALLY BID NOT-TAKING DULOXETINE HCL 30 MG CAPSULE DELAYED RELEASE PARTICLES 1 CAPSULE ORALLY ONCE A DAY FOR NEURPATHIC PAIN NOT-TAKING OXYCODONE-ACETAMINOPHEN 5-325 MG TABLET 1 TABLET NEEDED ORALLY EVERY 6 HRS NOT-TAKING CYCLOBENZAPRINE HCL 10 MG TABLET 1 TABLET NEEDED ORALLY FOR SPASMS AND PAIN BEFORE BEDTIME NOT-TAKING TIZANIDINE HCL 4 MG TABLET 1 TABLET NEEDED ORALLY THREE TIMES A DAY PRN NOT-TAKING GABAPENTIN 300 MG CAPSULE 1 CAPSULE ORALLY FOR PAIN THREE TIMES A DAY NOT-TAKING AMITRIPTYLINE HCL 10 MG TABLET 1-2 TABLETS ORALLY QHS NOT-TAKING MOBIC 15 MG TABLET 1 TABLET ORALLY ONCE A DAY PRN NOT-TAKING KETOROLAC TROMETHAMINE 10 MG TABLET 1 TABLET WITH FOOD OR MILK NEEDED ORALLY EVERY 6 HRS MEDICATION LIST REVIEWED AND RECONCILED WITH THE PATIENT PAST MEDICAL HISTORY 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 SURGICAL HISTORY CARPELTUNNEL ON LEFT HAND EAR TUBES T&A ACFD C5-7 NCOG (ANTERIOR CERVICAL FUSION) 2014 LEFT ELBOW SURGERY 10/2017 FAMILY HISTORY FATHER: ALIVE 70 YRS MOTHER: ALIVE 68 YRS, DIAGNOSED WITH HYPERTENSION, HEART DISEASE, CANCER PATERNAL GRAND FATHER: 98 YRS, PSYCHIATRIC CONDITIONS PATERNAL GRAND MOTHER: , HEART DISEASE MATERNAL GRAND FATHER: , HEART DISEASE MATERNAL GRAND MOTHER: 1 BROTHER(S) , 3 SISTER(S) - HEALTHY. 2DAUGHTER(S) - HEALTHY. SOCIAL HISTORY GENERAL: TOBACCO USE ARE YOU A:CURRENT SMOKER ARE YOU INTERESTED IN QUITTING?NOT READY TO QUIT COUNSELED THE PATIENT ON SMOKING EFFECTS, EDUCATION [id number]/07/2019 HOW MANY CIGARETTES A DAY DO YOU SMOKE?11-20 HOW SOON AFTER YOU WAKE UP DO YOU SMOKE YOUR FIRST CIGARETTE?WITHIN 5 MIN HOW OFTEN DO YOU SMOKE CIGARETTES?EVERY DAY PATIENT COUNSELED ON THE DANGERS OF TOBACCO USE AND URGED TO QUIT:07/20/2018 LUNG CANCER SCREENING SMOKING STATUS:CURRENT SMOKER NOT INTERESTED IN QUITTING OF 08/17/17 BMI CARE GOAL FOLLOW-UP ABOVE NORMAL BMI FOLLOW-UPDIETARY MANAGEMENT EDUCATION, GUIDANCE, AND COUNSELING, DIETARY NEEDS EDUCATION ALCOHOL SCREENING DID YOU HAVE A DRINK CONTAINING ALCOHOL IN THE PAST YEAR?NO POINTS0 INTERPRETATIONNEGATIVE RECREATIONAL DRUG USE DRUG USE? MEDICAL MARIJUANA CAFFEINE OCCASIONAL ONLY. HIV / HEP-C SCREENING HIV TEST OFFERED TO PATIENT:YES DATE OFFERED:11/26/2016 TEST ACCEPTED:NO REASON:PATIENT DECLINED HEP-C TEST OFFERED TO PATIENT:NO MANDAEN NO CONFUCIANIST BELIEFS THAT WOULD IMPACT HEALTH CARE. LANGUAGE PRYDEINIG. EDUCATION HIGHSCHOOL. LEARNING BARRIERS / SPECIAL NEEDS BARRIERS TO LEARNING?NO HEARING IMPAIRED?NO VISION IMPAIRED?YES :CORRECTIVE LENSES CONTACTS/GLASSES COGNITIVELY IMPAIRED?NO READINESS TO LEARN?YES LEARNING PREFERENCES?NO LEARNING CAPABILITIES PRESENT?YES EMOTIONAL BARRIERS?NO SPECIAL DEVICES?NO DIRECTOR SEARCH NEEDED?NO DOMESTIC VIOLENCE NONE. 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 EXERCISE: NO REGULAR EXERCISE. MARITAL STATUS: . OTHERS AT HOME: SPOUSE, CHILDREN. PAIN CLINIC PFS, CLERGY, PUBLIC HEALTH REFERRALS HAS THE PATIENT BEEN EDUCATED REGARDING HIS/HER PLAN OF CARE?YES HAS THE PATIENT BEEN EDUCATED REGARDING PAIN, THE RISK FOR PAIN, THE IMPORTANCE OF EFFECTIVE PAIN MANAGEMENT, AND THE PAIN ASSESSMENT PROCESS?YES HOUSING: OWNS HOME. ADVANCE DIRECTIVE ADVANCE DIRECTIVE DISCUSSED WITH PATIENT:YES NO ADVANCED DIRECTIVES, PT DECLINES INFORMATION AT THIS TIME. ASSISTANCE OFFERED WITH FILLING OUT FORM, PT DECLINES. 07/20/18 REVIEWED WITH PT 12/20/17 8268 LASREVIEWED WITH PT 02/23/18 1206 LASREVIEWED WITH PT 05/23/18 1346 BVREVIEWED WITH PATIENT 07/20/18 1517 JS. HOSPITALIZATION/MAJOR DIAGNOSTIC PROCEDURE SEE ABOVE REVIEW OF SYSTEMS REVIEWED BY: PROVIDER: . CONSTITUTIONAL: ANY CHANGE IN YOUR MEDICAL CONDITION? NO . CHILLS NO . FEVER NO . INFECTION: DO YOU HAVE NEW INFECTIONS? NO . DO YOU HAVE HISTORY OF MRSA? NO . MUSCULOSKELETAL: ANY NEW PATTERNS OF PAIN OR NUMBNESS? YES, STATES NEW SHARP PAIN IN BILATERAL NECK FOR THE PAST COUPLE OF WEEKS . GASTROENTEROLOGY: ANY NEW CHANGE IN BOWEL CONTROL? NO . GENITOURINARY: ANY NEW CHANGE IN BLADDER CONTROL? YES, FOR THE LAST 2-3 MONTHS DIFFICULTY URINATING . IS THERE A CHANCE YOU COULD BE ? NO . HEMATOLOGY/LYMPH: DO YOU TAKE ANY BLOOD THINNERS? (FOR EXAMPLE- COUMADIN, PLAVIX, AGGRENOX, PLATEL, PRADAXA, OR XARELTO) NO . WHEN WAS YOUR LAST DOSE? DATE: TIME: . NEUROLOGY: HAVE YOU FALLEN IN THE PAST 12 MONTHS? NO . ANY NEW EXTREMITY NUMBNESS OR WEAKNESS? YES, STATES NEW NUMBNESS AND WEAKNESS TO THE RIGHT ARM . CARDIOLOGY: DO YOU HAVE A PACEMAKER OR DEFIBRILLATOR? NO . RESPIRATORY: HAVE YOU BEEN SICK IN THE PAST WEEK? NO . FEVER NO . FLU LIKE SYMPTOMS? NO . COUGH NO . INTEGUMENTARY: DO YOU HAVE ANY RASHES OR OPEN SORES? NO . ALLERGIC/IMMUNO: ARE YOU ALLERGIC TO IV DYE? NO . ANY NEW ALLERGIES? NO . PSYCHIATRIC: DO YOU HAVE THOUGHTS OF HURTING YOURSELF OR SOMEONE ELSE? NO . ARE YOU ABUSED, NEGLECTED, OR IN AN UNSAFE ENVIRONMENT? NO . ENDOCRINOLOGY: ARE YOU DIABETIC? NO . OTHER: DO YOU NEED ANY PRESCRIPTIONS? NO . IF YES, PLEASE LIST: ____ . ANY NEW PROBLEMS WITH YOUR MEDICATIONS? NO . WHEN DID YOU LAST DRINK? ____07/20/18 1330 . WHAT DID YOU LAST DRINK? __WATER . NAME OF PERSON DRIVING YOU HOME? ____LORIHILARIO MICHAUD . DO YOU HAVE ANY OTHER QUESTIONS OR CONCERNS NO . VITAL SIGNS WT 222 LBS, HT 72 IN, BMI 30.11 INDEX, BP 141/96 MM HG, HR 101 /MIN, RR 16 /MIN, TEMP 97.9 F, OXYGEN SAT % 97%, NA INITIALS SC 14:19. ASSESSMENTS MYALGIA, OTHER SITE - M79.18 (PRIMARY) PROCEDURES PN TRIGGER POINT INJECTION WITH STEROIDS PRE PROCEDURE DIAGNOSIS 1. MYALGIA 2. PAIN AT BILATERAL NECK AREA POST PROCEDURE DIAGNOSIS 1. MYALGIA 2. PAIN AT BILATERAL NECK AREA PROCEDURE TRIGGER POINT INJECTION AT BILATERAL NECK AREA SURGEON DR. GABY RAY MANUFACTURING DESIGN ENGINEER NONE ANESTHESIA LOCAL PRE PROCEDURE NOTE THE PATIENT HAS A HISTORY OF CHRONIC PAIN AT THE RIGHT AND LEFT NECK AREA. I EVALUATE THE PATIENT AND REVIEWED THE CHART. THERE IS EVIDENCE OF BANDS OF TISSUE WITH RESTRICTION OF MOVEMENT AND PRESENCE OF TRIGGER POINT AT THE AFFECTED AREA. I WENT OVER THE RISKS, ALTERNATIVES, AND BENEFITS ASSOCIATED WITH THIS PROCEDURE. THE PATIENT WOULD LIKE TO PROCEED AND GIVE CONSENT TO PERFORMED THE PROCEDURE. THE PATIENT DENIES UNEXPLAINABLE WEIGHT LOSS, FEVER, CHILLS, OR NEW CHANGES IN URINARY OR BOWEL CONTROL DESCRIPTION OF PROCEDURE THE PATIENT WAS BROUGHT TO THE PROCEDURE ROOM AND PLACED IN THE SITTING POSITION. THE AREA WAS CLEANED WITH ALCOHOL. THE PROCEDURE WAS DONE USING ASEPTIC STERILE TECHNIQUE. I CHECKED LATERALITY AND THE LEVEL WHERE THE PROCEDURE WAS GOING TO BE PERFORMED WITH THE PATIENT AND THE SUPPORTING STAFF AT THE MOMENT OF THE TIME OUT IN THE PROCEDURE ROOM. USING A 25-GAUGE NEEDLE, TRIGGER POINTS WERE INJECTED AT THE RIGHT AND LEFT NECK AREA WITH A TOTAL OF 40 ML OF BUPIVACAINE 0.25% AND KENALOG 40 MG. THERE WAS NO EVIDENCE OF BLOOD, PARESTHESIA OR CEREBROSPINAL FLUID DURING THE PROCEDURE. THE PATIENT WAS SENT TO THE RECOVERY ROOM. THE PATIENT WAS MOVING THE EXTREMITIES AND DOING WELL. THERE WAS NO COMPLICATION DURING THE PROCEDURE POST PROCEDURE NOTE THE PATIENT WILL BE SEEN IN A FOLLOW UP IN THE NEXT FEW WEEKS. INSTRUCTIONS WERE GIVEN, QUESTIONS WERE ANSWERED, AND THE PATIENT EXPRESSED UNDERSTANDING AND AGREES WITH THE PLAN. I, REG LANGFORD, DOCUMENTED THE ABOVE INFORMATION ACTING A SCRIBE FOR DR. RAY. I HAVE REVIEWED THE ABOVE DOCUMENT, WRITTEN BY REG ARTEAGA AND I VERIFY THAT IT IS ACCURATE. PROCEDURE CODES 24106 INJ TRIGGER POINT / [facility] [place] DISPOSITION & COMMUNICATION FOLLOW UP 3 WEEKS ELECTRONICALLY SIGNED BY GABY RAY MD, MD ON 08/06/2018 AT 07:42 PM EDT DISCLAIMER : THIS IS A VISIT SUMMARY EXTRACTED FROM THE [employer] CHART. IT IS NOT A COPY OF THE [employer] PROGRESS NOTE. [facility]ENTER[facility]
== END ==
LOC: M PAIN 14:15
PROVIDERS: ATTEND Anesthesiology
DX: M79.18 Myalgia, other site (principal); M54.2 Cervicalgia; F17.210 Nicotine dependence, cigarettes, uncomplicated; Z79.899 Other long term (current) drug therapy
CPT/HCPCS: 20552; J3301

== ENCOUNTER → 2018-09-01 | Outpatient (CLI) | payer OTHER ==
[~2018-09-01] MED LIST changes: -BUPIVACAINE HCL 0.25% 10 ML VIAL As Ordered ONE; -BUPIVACAINE HCL 0.25% 30 ML VIAL As Ordered ONE; -TRIAMCINOLONE ACETONIDE SUSP 40 MG/ML VIAL (J3301) As Ordered ONE; -diazePAM 5 MG TAB As Ordered ONE; -oxyCODONE 5MG TAB As Ordered ONE
--- NOTE | 2018-09-14 00:34 | ECWPNPC ---
PATIENT NAME: IBLL MICHAUD : 1975 GENDER: MALE VISIT DATE: 09/01/2018 DISCHARGE DATE: 09/01/18 1559 VISIT LOCKED DATE TIME: PHYSICIAN: GABY RAY MD RESOURCE: GABY RAY MD REASON FOR APPOINTMENT 1. W/C POST TPI HISTORY OF PRESENT ILLNESS HISTORY OF PRESENT ILLNESS: PAIN THE PATIENT DESCRIBES THE PAIN... 42 YEAR OLD MALE PATIENT WITH A HISTORY OF CHRONIC NECK PAIN. THE PATIENT DESCRIBES THE PAIN ACHING, BURNING, STABBING, SHOOTING, SORE, TENDER, SHARP, AND CONTINUOUS WITH A PAIN SCORE OF 4-7/10 DEPENDING ON PHYSICAL ACTIVITY. 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 HE SAID HE WAS LAYING INSULATION ON A ROOF WHEN A BUNDLE FELL OFF A CART AND LANDED ON HIS HEAD, WHICH RESULTED IN HIS NECK INJURY. THE PATIENT CONTINUED TO WORK FOR A YEAR AND THEN WAS TAKEN OUT OF WORK. THE PATIENT SAYS THE PAIN BEGINS IN HIS NECK AND RADIATES DOWN HIS ARMS AND UPWARDS TO HIS HEAD. THE PATIENT HAD PREVIOUS NECK SURGERY AND SAYS HE HAD PAIN RELIEF FOR 6 MONTHS BEFORE THE PAIN RETURNED. THE PATIENT HAD A TRIGGER POINT INJECTION DONE ON 07/20/2018 THAT RESULTED IN SOME PAIN RELIEF FOR A WEEK, BUT THE PAIN PROMPTLY RETURNED. THE PATIENT SAYS HE HAS DIFFICULTY WITH REPETITIVE MOVEMENT AND PERFORMING HIS DAILY ACTIVITIES SUCH CLEANING THE HOUSE AND GROCERY SHOPPING. PATIENT DENIES UNEXPLAINABLE WEIGHT LOSS, FEVER, CHILLS, NEW CHANGES ON HIS URINARY OR BOWEL CONTROL. FALL RISK SCREENING: SCREENING :NO FALLS REPORTED IN THE LAST YEAR CURRENT MEDICATIONS TAKING IBUPROFEN 800 MG TABLET 1 TABLET WITH FOOD OR MILK NEEDED ORALLY NEEDED FOR PAIN THREE TIMES A DAY NOT-TAKING OMEPRAZOLE 40 MG CAPSULE DELAYED RELEASE 1 CAPSULE ORALLY ONCE A DAY NOT-TAKING [id number] 50-325-40 MG CAPSULE 1 CAPSULE NEEDED ORALLY EVERY 4 HRS PRN NECK SOMATIC PAIN MDD=2, NOTES: FEW WEEKS AGO NOT-TAKING CELEBREX 200 MG CAPSULE 1 CAPSULE WITH FOOD ORALLY FOR FOOD ONCE A DAY, NOTES: NONE RECENTLY NOT-TAKING METOPROLOL TARTRATE 25 MG TABLET 1 TABLET WITH FOOD ORALLY BID NOT-TAKING DULOXETINE HCL 30 MG CAPSULE DELAYED RELEASE PARTICLES 1 CAPSULE ORALLY ONCE A DAY FOR NEURPATHIC PAIN NOT-TAKING OXYCODONE-ACETAMINOPHEN 5-325 MG TABLET 1 TABLET NEEDED ORALLY EVERY 6 HRS NOT-TAKING CYCLOBENZAPRINE HCL 10 MG TABLET 1 TABLET NEEDED ORALLY FOR SPASMS AND PAIN BEFORE BEDTIME NOT-TAKING TIZANIDINE HCL 4 MG TABLET 1 TABLET NEEDED ORALLY THREE TIMES A DAY PRN NOT-TAKING GABAPENTIN 300 MG CAPSULE 1 CAPSULE ORALLY FOR PAIN THREE TIMES A DAY NOT-TAKING AMITRIPTYLINE HCL 10 MG TABLET 1-2 TABLETS ORALLY QHS NOT-TAKING MOBIC 15 MG TABLET 1 TABLET ORALLY ONCE A DAY PRN NOT-TAKING KETOROLAC TROMETHAMINE 10 MG TABLET 1 TABLET WITH FOOD OR MILK NEEDED ORALLY EVERY 6 HRS MEDICATION LIST REVIEWED AND RECONCILED WITH THE PATIENT PAST MEDICAL HISTORY 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 SURGICAL HISTORY CARPELTUNNEL ON LEFT HAND EAR TUBES T&A ACFD C5-7 NCOG (ANTERIOR CERVICAL FUSION) 2014 LEFT ELBOW SURGERY 10/2017 FAMILY HISTORY FATHER: ALIVE 70 YRS MOTHER: ALIVE 68 YRS, DIAGNOSED WITH HEART DISEASE, CANCER, HYPERTENSION PATERNAL GRAND FATHER: 98 YRS, PSYCHIATRIC CONDITIONS PATERNAL GRAND MOTHER: , HEART DISEASE MATERNAL GRAND FATHER: , HEART DISEASE MATERNAL GRAND MOTHER: 1 BROTHER(S) , 3 SISTER(S) - HEALTHY. 2DAUGHTER(S) - HEALTHY. SOCIAL HISTORY GENERAL: TOBACCO USE ARE YOU A:CURRENT SMOKER ARE YOU INTERESTED IN QUITTING?NOT READY TO QUIT COUNSELED THE PATIENT ON SMOKING EFFECTS, EDUCATION [id number]/07/2019 HOW MANY CIGARETTES A DAY DO YOU SMOKE?11-20 HOW SOON AFTER YOU WAKE UP DO YOU SMOKE YOUR FIRST CIGARETTE?WITHIN 5 MIN HOW OFTEN DO YOU SMOKE CIGARETTES?EVERY DAY PATIENT COUNSELED ON THE DANGERS OF TOBACCO USE AND URGED TO QUIT:09/01/2018 LATEX QUESTIONNAIRE LATEX ALLERGY : HAVE YOU EVER DEVELOPED ANY TYPE OF REACTION AFTER HANDLING LATEX PRODUCTS SUCH RUBBER GLOVES, CONDOMS, DIAPHRAGMS, BALLOONS, SOCKS, OR UNDERWEAR?NO LATEX ALLERGY : HAVE YOU EVER DEVELOPED ANY TYPE OF REACTION DURING OR AFTER DENTAL APPOINTMENT, VAGINAL/RECTAL EXAMINATION, SURGICAL PROCEDURE, OR ANY OTHER EXPOSURE?NO DATE ASKED : 08/11/2018 LATEX RISK : HAVE YOU EVER HAD ANY DIFFICULTY BREATHING OR HIVES AFTER EATING OR HANDLING ANY FRUITS, OR VEGETABLES; SUCH KIWI, BANANAS, STONE FRUITS, OR CHESTNUTSNO LATEX RISK : DO YOU HAVE A PREVIOUS PERSONAL HISTORY OF MORE THAN NINE SURGERIES, SPINA BIFIDA, OR REPEATED CATHERTIZATIONS? NO LATEX RISK : ARE YOU FREQUENTLY EXPOSED TO LATEX PRODUCTS IN YOUR OCCUPATION?NO LUNG CANCER SCREENING SMOKING STATUS:CURRENT SMOKER NOT INTERESTED IN QUITTING OF 08/17/17 BMI CARE GOAL FOLLOW-UP ABOVE NORMAL BMI FOLLOW-UPDIETARY MANAGEMENT EDUCATION, GUIDANCE, AND COUNSELING, DIETARY NEEDS EDUCATION ALCOHOL SCREENING DID YOU HAVE A DRINK CONTAINING ALCOHOL IN THE PAST YEAR?NO POINTS0 INTERPRETATIONNEGATIVE RECREATIONAL DRUG USE DRUG USE? MEDICAL MARIJUANA CAFFEINE OCCASIONAL ONLY. HIV / HEP-C SCREENING HIV TEST OFFERED TO PATIENT:YES DATE OFFERED:08/11/2018 TEST ACCEPTED:NO HEP-C TEST OFFERED TO PATIENT:NO REASON:PATIENT DECLINED BROCHURE PROVIDED TO PATIENTYES LATTER DAY [id number] NONE LANGUAGE LANGUAGES SPOKEN:AMHARIC EDUCATION LEVEL OF EDUCATION:HIGH SCHOOL LEARNING BARRIERS / SPECIAL NEEDS CHANGE FROM LAST VISIT?NO BARRIERS TO LEARNING?NO HEARING IMPAIRED?NO VISION IMPAIRED?YES COGNITIVELY IMPAIRED?NO :CORRECTIVE LENSES CONTACTS/GLASSES READINESS TO LEARN?YES LEARNING PREFERENCES?NO LEARNING CAPABILITIES PRESENT?YES EMOTIONAL BARRIERS?NO SPECIAL DEVICES?NO CLEARANCE COORDINATOR NEEDED?NO DOMESTIC VIOLENCE DO YOU FEEL SAFE IN YOUR ENVIRONMENT?YES 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 DIET: REGULAR. EXERCISE: NO REGULAR EXERCISE. MARITAL STATUS: . OTHERS AT HOME: SPOUSE, CHILDREN. PAIN CLINIC PFS, CLERGY, PUBLIC HEALTH REFERRALS HAS THE PATIENT BEEN EDUCATED REGARDING HIS/HER PLAN OF CARE?YES HAS THE PATIENT BEEN EDUCATED REGARDING PAIN, THE RISK FOR PAIN, THE IMPORTANCE OF EFFECTIVE PAIN MANAGEMENT, AND THE PAIN ASSESSMENT PROCESS?YES HOUSING: OWNS HOME. ADVANCE DIRECTIVE ADVANCE DIRECTIVE DISCUSSED WITH PATIENT:YES NO ADVANCED DIRECTIVES, PT DECLINES INFORMATION AT THIS TIME. ASSISTANCE OFFERED WITH FILLING OUT FORM, PT DECLINES. 07/20/18 REVIEWED WITH PT 12/20/17 0925 LASREVIEWED WITH PT 02/23/18 1206 LASREVIEWED WITH PT 05/23/18 1346 BVREVIEWED WITH PATIENT 07/20/18 1517 JS. HOSPITALIZATION/MAJOR DIAGNOSTIC PROCEDURE SEE ABOVE REVIEW OF SYSTEMS REVIEWED BY: PROVIDER: GABY RAY MD . CONSTITUTIONAL: ANY CHANGE IN YOUR MEDICAL CONDITION? NO . CHILLS NO . FEVER NO . INFECTION: DO YOU HAVE NEW INFECTIONS? NO . DO YOU HAVE HISTORY OF MRSA? NO . MUSCULOSKELETAL: ANY NEW PATTERNS OF PAIN OR NUMBNESS? YES INCREASED PAIN AND NUMBNESS ARMS AND SHOULDERS WHEN PT LOOKS DOWN NECK LOCKS IN PLACE AND EXPERIENCES ELECTRICAL SHOCKS . GASTROENTEROLOGY: ANY NEW CHANGE IN BOWEL CONTROL? NO . GENITOURINARY: ANY NEW CHANGE IN BLADDER CONTROL? NO . IS THERE A CHANCE YOU COULD BE ? NO . HEMATOLOGY/LYMPH: DO YOU TAKE ANY BLOOD THINNERS? (FOR EXAMPLE- COUMADIN, PLAVIX, AGGRENOX, PLATEL, PRADAXA, OR XARELTO) NO . WHEN WAS YOUR LAST DOSE? DATE: TIME: . NEUROLOGY: HAVE YOU FALLEN IN THE PAST 12 MONTHS? NO . ANY NEW EXTREMITY NUMBNESS OR WEAKNESS? NO . CARDIOLOGY: DO YOU HAVE A PACEMAKER OR DEFIBRILLATOR? NO . RESPIRATORY: HAVE YOU BEEN SICK IN THE PAST WEEK? NO . FEVER NO . FLU LIKE SYMPTOMS? NO . COUGH NO . INTEGUMENTARY: DO YOU HAVE ANY RASHES OR OPEN SORES? NO . ALLERGIC/IMMUNO: ARE YOU ALLERGIC TO IV DYE? NO . ANY NEW ALLERGIES? NO . PSYCHIATRIC: DO YOU HAVE THOUGHTS OF HURTING YOURSELF OR SOMEONE ELSE? NO . ARE YOU ABUSED, NEGLECTED, OR IN AN UNSAFE ENVIRONMENT? NO . ENDOCRINOLOGY: ARE YOU DIABETIC? NO . OTHER: DO YOU NEED ANY PRESCRIPTIONS? NO . IF YES, PLEASE LIST: ____ . ANY NEW PROBLEMS WITH YOUR MEDICATIONS? NO . WHEN DID YOU LAST EAT? ____ . WHEN DID YOU LAST DRINK? ____ . WHAT DID YOU LAST DRINK? ____ . NAME OF PERSON DRIVING YOU HOME? ____ . DO YOU HAVE ANY OTHER QUESTIONS OR CONCERNS NO . VITAL SIGNS WT 270 LBS, HT 72 IN, BMI 36.61 INDEX, BP 130/86 MM HG, HR 96 /MIN, RR 16 /MIN, TEMP 97.9 F, OXYGEN SAT % 98%, SAFE IN ENV? (Y/N) YES, NA INITIALS AW 1351, REVIEWED BY: KG. EXAMINATION GENERAL EXAMINATION: PATIENT IS ALERT O X 3 AND COOPERATIVE. TENDERNESS OVER THE NECK AREA. PAIN INCREASES OVER THE CERVICAL FACET JOINTS WITH EXTENSION AND LATERAL ROTATION OF THE NECK. MRI OF THE CERVICAL SPINE DONE ON 09/05/2017 SHOWS CERVICAL SPONDYLOSIS CHANGES AT MULTIPLE LEVELS AND IS STATUS POST C5 TO 7 ANTERIOR SPINAL FUSION. ASSESSMENTS SPONDYLOSIS OF CERVICAL REGION WITHOUT MYELOPATHY OR RADICULOPATHY - M47.812 (PRIMARY) TREATMENT SPONDYLOSIS OF CERVICAL REGION WITHOUT MYELOPATHY OR RADICULOPATHY CLINICAL NOTES: WE DISCUSSED SEVERAL ISSUES WITH MR. MICHAUD'S PAIN MANAGEMENT CASE. DUE TO THE CERVICAL SPONDYLOSIS, I WOULD LIKE TO MOVE FORWARD WITH A THERAPEUTIC BILATERAL CERVICAL FACET BLOCK AT THE C2-C3 AND C3-C4 LEVELS THIS TIME. PATIENT WOULD LIKE TO MOVE FORWARD WITH IV SEDATION DUE TO DISCOMFORT, PAIN AND ANXIETY ASSOCIATED WITH THE PROCEDURE. WE DISCUSSED THE BENEFITS, RISKS, AND ALTERNATIVES OF THE INJECTION AND THE PATIENT WOULD LIKE TO PROCEED. THE PATIENT WILL FOLLOW UP IN 3 WEEKS AFTER THE INJECTION. INSTRUCTIONS WERE GIVEN, QUESTIONS WERE ANSWERED, PATIENT REPORTS UNDERSTANDING AND AGREES WITH THE PLAN. I, PARRISH CARPIO, DOCUMENTED THE ABOVE INFORMATION ACTING A SCRIBE FOR DR. RAY. I HAVE REVIEWED THE ABOVE DOCUMENT, WRITTEN BY PARRISH CARPIO SCRIBLatesha AND I VERIFY THAT IT IS ACCURATE. . OTHERS NOTES: FACET JOINT INJECTION: YOUR EXPERIENCE MATERIAL WAS PRINTED,FACET JOINT INJECTION MATERIAL WAS PRINTED,FACET JOINT INJECTION MATERIAL WAS PRINTED. PROCEDURES PN WORKMANS' COMP OPINION IN YOUR OPINION, WAS THE INCIDENT THAT THE PATIENT DESCRIBED THE COMPETENT MEDICAL CAUSE OF THIS INJURY/ILLNESS? YES ARE THE PATIENT'S COMPLAINTS CONSISTENT WITH HIS/HER HISTORY OF THE INJURY/ILLNESS? YES IS THE PATIENT'S HISTORY OF THE INJURY/ILLNESS CONSISTENT WITH YOUR OBJECTIVE FINDING? YES WHAT IS THE PERCENTAGE OF TEMPORARY IMPAIRMENT? MODERATE TO MARKED = 66.7% IS THE PATIENT WORKING? YES DOCTOR ON SITE: GABY CHUA MD PROCEDURE CODES FA211 ESTABILISHED PATIENT [facility] FACILITY CHARGE G8427 CURRENT MEDS W/DOSAGES DOCUMENTED G8730 PAIN ASSESS POS TOOL F/U PLAN DOC DISPOSITION & COMMUNICATION FOLLOW UP 3 WEEKS ELECTRONICALLY SIGNED BY THI MEDINA ON 09/13/2018 AT 12:42 PM EDT DISCLAIMER : THIS IS A VISIT SUMMARY EXTRACTED FROM THE [employer] CHART. IT IS NOT A COPY OF THE [employer] PROGRESS NOTE. [place]
== END ==
LOC: M PAIN 13:30
PROVIDERS: ATTEND Anesthesiology
DX: M47.812 Spondylosis without myelopathy or radiculopathy, cervical region (principal); G89.29 Other chronic pain; F17.210 Nicotine dependence, cigarettes, uncomplicated; Z79.899 Other long term (current) drug therapy

== ENCOUNTER → 2018-11-01 | Outpatient (CLI) | payer OTHER ==
[~2018-11-01] MED LIST changes: +CBD OIL; +E-Z-GAS II EFFERVESCENT PACKET (SODIUM BICARB./CITRIC ACID/SIMETHICONE) As Ordered ONE; +E-Z-HD 98% w/w 340GM SUSP BTL As Ordered ONE; +E-Z-PAQUE 96% w/w SUSP 176GM BTL As Ordered ONE; +METO1TAB32 PO; +OMEP20CA3 PO; +PREG50CA PO
--- NOTE | 2018-11-02 08:55 | REP ---
Examination Requested: Esophagram Barium Swallow Reason For Exam/Comment: Dysphasia Esophagram: The procedure was performed LEONOR Stephens, under the direct supervision of Dr. Beyer. The images were reviewed with Dr. Beyer. A single PA chest x-ray is submitted as a manager massage department film. A post surgical plate spanning the C5-C7 vertebral bodies is visualized. The superior mediastinal structures are midline. The heart size is within normal limits. The lungs are clear. Liquid barium and gas producing granules were given in the erect position as well as liquid barium in the prone oblique position, in order to perform a double contrast esophagram examination. Oral and pharyngeal stages of the examination demonstrated flash laryngeal penetration without aspiration. Esophageal transport is efficient and there is no esophagitis, stricture, or mucosal ring noted. There is no hiatal hernia noted. Gastroesophageal reflux is not visualized throughout the course of the exam. Impression: 1. Flash laryngeal penetration without aspiration, otherwise unremarkable esophagram. 0.4 minutes of fluoroscopy time was utilized for this procedure. Reviewed by LEONOR Freitas 11/01/2018 05:12 P Electronically Signed by Gio Beyer MD 11/02/2018 08:46 A
== END ==
LOC: M RAD 09:30
PROVIDERS: ATTEND Internal Medicine Gastroenterology
DX: R13.10 Dysphagia, unspecified (principal)

== ENCOUNTER → 2018-12-05 | Day surgery (SDC) | payer OTHER ==
[~2018-12-05] VITALS: Ht 182.9 cm; Wt 102.4 kg
[~2018-12-05] MED LIST changes: +ASPI-255 PO; -E-Z-GAS II EFFERVESCENT PACKET (SODIUM BICARB./CITRIC ACID/SIMETHICONE) As Ordered ONE; -E-Z-HD 98% w/w 340GM SUSP BTL As Ordered ONE; -E-Z-PAQUE 96% w/w SUSP 176GM BTL As Ordered ONE; +NS 1,000 ML IV ONE; -OMEP20CA3 PO; +OMEP20CA4 PO; +medical marijuana PO
[2018-12-05 13:03] VITALS: BP 158/102
== END | disposition home or self-care (01) ==
LOC: M OPP 12:33
PROVIDERS: ATTEND Internal Medicine Gastroenterology
DX: R13.10 Dysphagia, unspecified (principal)

== ENCOUNTER → 2018-12-06 | Outpatient (CLI) | payer OTHER ==
[~2018-12-06] MED LIST changes: -NS 1,000 ML IV ONE
--- NOTE | 2018-12-15 23:55 | ECWPNPC ---
PATIENT NAME: BILL MICHAUD : 1975 GENDER: MALE VISIT DATE: 12/06/2018 DISCHARGE DATE: 12/06/18 1510 VISIT LOCKED DATE TIME: PHYSICIAN: GABY RAY MD RESOURCE: GABY RAY MD REASON FOR APPOINTMENT 1. W/C F/U NECK -CAN NOT HAVE ANY MORE INJECTIONS PER WC HISTORY OF PRESENT ILLNESS HISTORY OF PRESENT ILLNESS: PAIN THE PATIENT DESCRIBES THE PAIN... 43 YEAR OLD MALE PATIENT WITH A HISTORY OF CHRONIC NECK PAIN. THE PATIENT DESCRIBES THE PAIN ACHING, BURNING, STABBING, SHARP, SORE, SHOOTING, TENDER, CONTINUOUS, AND DAILY WITH A PAIN SCORE OF 6-10/10 DEPENDING ON PHYSICAL ACTIVITY. 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 THE PATIENT STATES HIS PAIN BEGINS IN BOTH SIDES OF HIS NECK AND RADIATES DOWN BETWEEN HIS SHOULDER BLADES, BOTH ARMS, AND TO HIS HANDS. THE PATIENT SAYS THE PAIN ALSO TRAVELS UPWARDS TO HIS HEAD THAT CAUSES NONSTOP HEADACHES FOR HIM. THE PATIENT RECEIVED NECK TRIGGER POINT INJECTIONS ON 07/20/2018, WHICH HE SAYS HELPED PROVIDE GOOD PAIN RELIEF FOR A COUPLE OF WEEKS BEFORE THE PAIN RETURNED. 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 THE PATIENT SAYS HE ALSO HAS TROUBLE SITTING AND STANDING FOR EXTENDED PERIODS OF TIME AND HIS HEAD BEGINS TO FEEL HEAVY DUE TO HIS PAIN. THE PATIENT MENTIONS HE IS CURRENTLY LOOKING FOR WORK. PATIENT DENIES UNEXPLAINABLE WEIGHT LOSS, FEVER, CHILLS, NEW CHANGES ON HIS URINARY OR BOWEL CONTROL. FALL RISK SCREENING: SCREENING :NO FALLS REPORTED IN THE LAST YEAR CURRENT MEDICATIONS TAKING MOTRIN IB 200 MG TABLET 2 TABLETS WITH FOOD OR MILK NEEDED ORALLY TWO TIMES A DAY NEEDED TAKING LYRICA 50 MG CAPSULE 1 CAPSULE ORALLY TWICE A DAY TAKING OMEPRAZOLE 40 MG CAPSULE DELAYED RELEASE 1 CAPSULE ORALLY TWICE A DAY TAKING CELEBREX 200 MG CAPSULE 1 CAPSULE WITH FOOD ORALLY FOR FOOD ONCE A DAY, NOTES: NONE RECENTLY NOT-TAKING IBUPROFEN 800 MG TABLET 1 TABLET WITH FOOD OR MILK NEEDED ORALLY NEEDED FOR PAIN THREE TIMES A DAY NOT-TAKING [id number] 50-325-40 MG CAPSULE 1 CAPSULE NEEDED ORALLY EVERY 4 HRS PRN NECK SOMATIC PAIN MDD=2, NOTES: FEW WEEKS AGO NOT-TAKING METOPROLOL TARTRATE 25 MG TABLET 1 TABLET WITH FOOD ORALLY BID NOT-TAKING DULOXETINE HCL 30 MG CAPSULE DELAYED RELEASE PARTICLES 1 CAPSULE ORALLY ONCE A DAY FOR NEURPATHIC PAIN NOT-TAKING OXYCODONE-ACETAMINOPHEN 5-325 MG TABLET 1 TABLET NEEDED ORALLY EVERY 6 HRS NOT-TAKING CYCLOBENZAPRINE HCL 10 MG TABLET 1 TABLET NEEDED ORALLY FOR SPASMS AND PAIN BEFORE BEDTIME NOT-TAKING TIZANIDINE HCL 4 MG TABLET 1 TABLET NEEDED ORALLY THREE TIMES A DAY PRN NOT-TAKING GABAPENTIN 300 MG CAPSULE 1 CAPSULE ORALLY FOR PAIN THREE TIMES A DAY NOT-TAKING AMITRIPTYLINE HCL 10 MG TABLET 1-2 TABLETS ORALLY QHS NOT-TAKING MOBIC 15 MG TABLET 1 TABLET ORALLY ONCE A DAY PRN NOT-TAKING KETOROLAC TROMETHAMINE 10 MG TABLET 1 TABLET WITH FOOD OR MILK NEEDED ORALLY EVERY 6 HRS MEDICATION LIST REVIEWED AND RECONCILED WITH THE PATIENT PAST MEDICAL HISTORY CERVICAL SPONDYLOSIS WITH MYELOPATHY AND RADICULOPATHY OTHER SPONDYLOSIS WITH RADICULOPATHY, CERVICAL REGION TOBACCO ABUSE HISTORY OF ATRIAL FIBRILLATION (STATES DOES NOT HAVE ANY LONGER) ALLERGIES N.K.D.A. SURGICAL HISTORY CARPELTUNNEL ON LEFT HAND EAR TUBES T&A ACFD C5-7 NCOG (ANTERIOR CERVICAL FUSION) 2014 LEFT ELBOW SURGERY 10/2017 FAMILY HISTORY FATHER: ALIVE 70 YRS MOTHER: ALIVE 68 YRS, DIAGNOSED WITH HEART DISEASE, CANCER, HYPERTENSION PATERNAL GRAND FATHER: 98 YRS, PSYCHIATRIC CONDITIONS PATERNAL GRAND MOTHER: , HEART DISEASE MATERNAL GRAND FATHER: , HEART DISEASE MATERNAL GRAND MOTHER: 1 BROTHER(S) , 3 SISTER(S) - HEALTHY. 2DAUGHTER(S) - HEALTHY. SOCIAL HISTORY GENERAL: TOBACCO USE ARE YOU A:CURRENT SMOKER HOW OFTEN DO YOU SMOKE CIGARETTES?EVERY DAY HOW SOON AFTER YOU WAKE UP DO YOU SMOKE YOUR FIRST CIGARETTE?WITHIN 5 MIN HOW MANY CIGARETTES A DAY DO YOU SMOKE?11-20 ARE YOU INTERESTED IN QUITTING?NOT READY TO QUIT PATIENT COUNSELED ON THE DANGERS OF TOBACCO USE AND URGED TO QUIT:09/01/2018 COUNSELED THE PATIENT ON SMOKING EFFECTS, EDUCATION [id number]/07/2019 HIV / HEP-C SCREENING HIV TEST OFFERED TO PATIENT:YES DATE OFFERED:08/11/2018 TEST ACCEPTED:NO HEP-C TEST OFFERED TO PATIENT:NO REASON:PATIENT DECLINED BROCHURE PROVIDED TO PATIENTYES OTHERS AT HOME: SPOUSE, CHILDREN. HOUSING: OWNS HOME. EDUCATION LEVEL OF EDUCATION:HIGH SCHOOL DIET: REGULAR. LANGUAGE LANGUAGES SPOKEN:ROMANSH DOMESTIC VIOLENCE DO YOU FEEL SAFE IN YOUR ENVIRONMENT?YES BMI CARE GOAL FOLLOW-UP ABOVE NORMAL BMI FOLLOW-UPDIETARY MANAGEMENT EDUCATION, GUIDANCE, AND COUNSELING, DIETARY NEEDS EDUCATION RECREATIONAL DRUG USE DRUG USE? MEDICAL MARIJUANA EXERCISE: NO REGULAR EXERCISE. LEARNING BARRIERS / SPECIAL NEEDS CHANGE FROM LAST VISIT?NO BARRIERS TO LEARNING?NO HEARING IMPAIRED?NO VISION IMPAIRED?YES COGNITIVELY IMPAIRED?NO :CORRECTIVE LENSES CONTACTS/GLASSES READINESS TO LEARN?YES LEARNING PREFERENCES?NO LEARNING CAPABILITIES PRESENT?YES EMOTIONAL BARRIERS?NO SPECIAL DEVICES?NO MANAGER FOOD SAFETY NEEDED?NO LUNG CANCER SCREENING SMOKING STATUS:CURRENT SMOKER NOT INTERESTED IN QUITTING OF 08/17/17 PAIN CLINIC PFS, CLERGY, PUBLIC HEALTH REFERRALS HAS THE PATIENT BEEN EDUCATED REGARDING HIS/HER PLAN OF CARE?YES HAS THE PATIENT BEEN EDUCATED REGARDING PAIN, THE RISK FOR PAIN, THE IMPORTANCE OF EFFECTIVE PAIN MANAGEMENT, AND THE PAIN ASSESSMENT PROCESS?YES LATEX QUESTIONNAIRE LATEX ALLERGY : HAVE YOU EVER DEVELOPED ANY TYPE OF REACTION AFTER HANDLING LATEX PRODUCTS SUCH RUBBER GLOVES, CONDOMS, DIAPHRAGMS, BALLOONS, SOCKS, OR UNDERWEAR?NO LATEX ALLERGY : HAVE YOU EVER DEVELOPED ANY TYPE OF REACTION DURING OR AFTER DENTAL APPOINTMENT, VAGINAL/RECTAL EXAMINATION, SURGICAL PROCEDURE, OR ANY OTHER EXPOSURE?NO DATE ASKED : 08/11/2018 LATEX RISK : HAVE YOU EVER HAD ANY DIFFICULTY BREATHING OR HIVES AFTER EATING OR HANDLING ANY FRUITS, OR VEGETABLES; SUCH KIWI, BANANAS, STONE FRUITS, OR CHESTNUTSNO LATEX RISK : DO YOU HAVE A PREVIOUS PERSONAL HISTORY OF MORE THAN NINE SURGERIES, SPINA BIFIDA, OR REPEATED CATHERIZATIONS? NO LATEX RISK : ARE YOU FREQUENTLY EXPOSED TO LATEX PRODUCTS IN YOUR OCCUPATION?NO CAFFEINE OCCASIONAL ONLY. ADVANCE DIRECTIVE ADVANCE DIRECTIVE DISCUSSED WITH PATIENT:YES NO ADVANCED DIRECTIVES, PT DECLINES INFORMATION AT THIS TIME. ASSISTANCE OFFERED WITH FILLING OUT FORM, PT DECLINES. 07/20/18 GNOSTICIST [id number] NONE MARITAL STATUS: . 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 REVIEWED WITH PT 8/7/18 6443 LASREVIEWED WITH PT 02/23/18 1206 LASREVIEWED WITH PT 05/23/18 1346 BVREVIEWED WITH PATIENT 07/20/18 1517 JS. HOSPITALIZATION/MAJOR DIAGNOSTIC PROCEDURE SEE ABOVE ATRIAL FIBRILLATION 2017 REVIEW OF SYSTEMS REVIEWED BY: PROVIDER: GABY RAY MD . CONSTITUTIONAL: ANY CHANGE IN YOUR MEDICAL CONDITION? NO . CHILLS NO . FEVER NO . INFECTION: DO YOU HAVE NEW INFECTIONS? NO . DO YOU HAVE HISTORY OF MRSA? NO . MUSCULOSKELETAL: ANY NEW PATTERNS OF PAIN OR NUMBNESS? YES, PAIN AND NUMBNESS ARE WORSE . GASTROENTEROLOGY: ANY NEW CHANGE IN BOWEL CONTROL? NO . GENITOURINARY: ANY NEW CHANGE IN BLADDER CONTROL? NO . IS THERE A CHANCE YOU COULD BE ? NO . HEMATOLOGY/LYMPH: DO YOU TAKE ANY BLOOD THINNERS? (FOR EXAMPLE- COUMADIN, PLAVIX, AGGRENOX, PLATEL, PRADAXA, OR XARELTO) NO . WHEN WAS YOUR LAST DOSE? DATE: TIME: . NEUROLOGY: HAVE YOU FALLEN IN THE PAST 12 MONTHS? NO . ANY NEW EXTREMITY NUMBNESS OR WEAKNESS? YES - WEAKNESS IN LEFT ARM WORSE - DROPPING THINGS . CARDIOLOGY: DO YOU HAVE A PACEMAKER OR DEFIBRILLATOR? NO . RESPIRATORY: HAVE YOU BEEN SICK IN THE PAST WEEK? NO . FEVER NO . FLU LIKE SYMPTOMS? NO . COUGH NO . INTEGUMENTARY: DO YOU HAVE ANY RASHES OR OPEN SORES? NO . ALLERGIC/IMMUNO: ARE YOU ALLERGIC TO IV DYE? NO . ANY NEW ALLERGIES? NO . PSYCHIATRIC: DO YOU HAVE THOUGHTS OF HURTING YOURSELF OR SOMEONE ELSE? NO . ARE YOU ABUSED, NEGLECTED, OR IN AN UNSAFE ENVIRONMENT? NO . ENDOCRINOLOGY: ARE YOU DIABETIC? NO . OTHER: DO YOU NEED ANY PRESCRIPTIONS? NO . IF YES, PLEASE LIST: ____ . ANY NEW PROBLEMS WITH YOUR MEDICATIONS? NO . WHEN DID YOU LAST EAT? ____ . WHEN DID YOU LAST DRINK? ____ . WHAT DID YOU LAST DRINK? ____ . NAME OF PERSON DRIVING YOU HOME? ____ . DO YOU HAVE ANY OTHER QUESTIONS OR CONCERNS NO . VITAL SIGNS WT 225 LBS, HT 72 IN, BMI 30.51 INDEX, BP 135/101 MM HG, HR 113 /MIN, RR 16 /MIN, TEMP 98.3 F, OXYGEN SAT % 97%, NA INITIALS AW 1410, REVIEWED BY: LS. EXAMINATION GENERAL EXAMINATION: PATIENT IS ALERT O X 3 AND COOPERATIVE. PAIN INCREASES OVER THE CERVICAL FACET JOINTS WITH EXTENSION AND LATERAL ROTATION OF THE NECK. MRI OF THE CERVICAL SPINE DONE ON 09/05/2017 SHOWS FACET ARTHROPATHY CHANGES AND FUSIONS AT C5-C6 AND C6-C7 LEVELS. ASSESSMENTS SPONDYLOSIS OF CERVICAL REGION WITHOUT MYELOPATHY OR RADICULOPATHY - M47.812 (PRIMARY) CERVICAL POST-LAMINECTOMY SYNDROME - M96.1 TREATMENT SPONDYLOSIS OF CERVICAL REGION WITHOUT MYELOPATHY OR RADICULOPATHY CLINICAL NOTES: WE DISCUSSED SEVERAL ISSUES WITH MR. MICHAUD'S PAIN MANAGEMENT CASE. DUE TO THE CERVICAL SPONDYLOSIS AND COMPRESSION OF NERVES FROM THE FUSION THAT IS CAUSING PAIN, I WOULD LIKE TO MOVE FORWARD WITH A BILATERAL C2-C3, C3-C4 THERAPEUTIC CERVICAL FACET BLOCK AT THIS TIME. THE PATIENT WOULD LIKE TO MOVE FORWARD WITH IV SEDATION DUE TO DISCOMFORT, PAIN, AND ANXIETY ASSOCIATED WITH THE PROCEDURE. WE DISCUSSED THE BENEFITS, RISKS, AND ALTERNATIVES OF THE INJECTION AND THE PATIENT WOULD LIKE TO PROCEED. I AM REFERRING THE PATIENT TO AV LANE TO CONSIDER CONTINUING MEDICATION MANAGEMENT FOR THE PATIENT. THE PATIENT WILL FOLLOW UP IN 4 MONTHS WITH THE NURSE PRACTITIONER TO CHECK ON RESULTS OF THE PROCEDURE. INSTRUCTIONS WERE GIVEN, QUESTIONS WERE ANSWERED, PATIENT REPORTS UNDERSTANDING AND AGREES WITH THE PLAN. I, PARRISH CARPIO, DOCUMENTED THE ABOVE INFORMATION ACTING A SCRIBE FOR DR. RAY. I HAVE REVIEWED THE ABOVE DOCUMENT, WRITTEN BY PARRISH ARTEAGA AND I VERIFY THAT IT IS ACCURATE. . PROCEDURES PN WORKMANS' COMP OPINION IN YOUR OPINION, WAS THE INCIDENT THAT THE PATIENT DESCRIBED THE COMPETENT MEDICAL CAUSE OF THIS INJURY/ILLNESS? YES ARE THE PATIENT'S COMPLAINTS CONSISTENT WITH HIS/HER HISTORY OF THE INJURY/ILLNESS? YES IS THE PATIENT'S HISTORY OF THE INJURY/ILLNESS CONSISTENT WITH YOUR OBJECTIVE FINDING? YES WHAT IS THE PERCENTAGE OF TEMPORARY IMPAIRMENT? MODERATE TO MARKED = 66.7% IS THE PATIENT WORKING? NO DOCTOR ON SITE: GABY CHUA MD PREVENTIVE MEDICINE PAIN CLINIC TEACHING: PROCEDURE TEACHING PRINTED AND REVIEWED INFORMATION ON CERVICAL FACET BLOCK PROCEDURE WITH PATIENT. ALSO REVIEWED PRE-PROCEDURE INFORMATION. PATIENT VERBALIZED AN UNDERSTANDING. SPENCER YOUNG 12/06/2018 3:08:00 PM > . PROCEDURE CODES G8427 CURRENT MEDS W/DOSAGES DOCUMENTED G8730 PAIN ASSESS POS TOOL F/U PLAN DOC FA211 ESTABILISHED PATIENT [facility] CHARGE DISPOSITION & COMMUNICATION FOLLOW UP 4 MONTHS (REASON: JEAN-CLAUDE C2-C3, C3-C4 CERVICAL FB W/ IV SEDATE, F/U WITH SCREW MACHINE REPAIRER IN 4 MTHS) ELECTRONICALLY SIGNED BY GABY RAY MD, MD ON 12/15/2018 AT 02:01 PM EDT DISCLAIMER : THIS IS A VISIT SUMMARY EXTRACTED FROM THE [email or web address] CHART. IT IS NOT A COPY OF THE [email or web address] PROGRESS NOTE. MTDD
== END ==
LOC: M PAIN 14:00
PROVIDERS: ATTEND Anesthesiology
DX: M47.812 Spondylosis without myelopathy or radiculopathy, cervical region (principal); M96.1 Postlaminectomy syndrome, not elsewhere classified; I48.91 Unspecified atrial fibrillation; F17.210 Nicotine dependence, cigarettes, uncomplicated; Z79.899 Other long term (current) drug therapy

== ENCOUNTER 2018-12-15 11:41 | Day surgery (SDC) | payer OTHER ==
[~2018-12-15] VITALS: Ht 182.9 cm; Wt 99.8 kg
[~2018-12-15 11:41] MED LIST changes: +LIDOCAINE 2% INJ 100 MG/5 ML SDV (FOR ANES.) As Ordered ONE; +NS 1,000 ML IV ONE; +PROPOFOL 200 MG/20 ML VIAL As Ordered ONE
[2018-12-15] MEDS ORDERED: fentaNYL 100 MCG/2 ML INJECTION (J3010) As Ordered ONE (12:35)
[2018-12-15] MEDS ORDERED: PROPOFOL 200 MG/20 ML VIAL As Ordered ONE (12:45)
--- NOTE | 2018-12-15 12:49 | ROOR ---
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 Procedure: Pre-Anesthesia Assessment: - The heart rate, respiratory rate, oxygen saturations, blood pressure, adequacy of pulmonary ventilation, and response to care were monitored throughout the procedure. The Endoscope was introduced through the mouth, and advanced to the second part of duodenum. The upper GI endoscopy was accomplished without difficulty. The patient tolerated the procedure well. Findings: The esophagus was normal. The stomach was normal. The examined duodenum was normal. Biopsies were obtained in the proximal esophagus and in the mid esophagus with cold forceps for evaluation of eosinophilic esophagitis. Impression: - Normal esophagus. - Normal stomach. - Normal examined duodenum. - Biopsies were obtained in the proximal esophagus and in the mid esophagus. Recommendation: - Telephone endoscopist for pathology results in 2 weeks. Shreyas Irvin MD Shreyas IRVIN MD 12/15/2018 12:49:30 PM Electronically signed by Shreyas IRVIN MD Number of Addenda: 0 Note Initiated On: 12/15/2018 12:34 PM Estimated Blood Loss: Estimated blood loss: none.
[2018-12-15 13:19] VITALS: BP 140/88
== END 2018-12-15 13:21 | disposition home or self-care (01) ==
LOC: M OPP 11:41
PROVIDERS: ATTEND Internal Medicine Gastroenterology
DX: R13.10 Dysphagia, unspecified (principal); F17.210 Nicotine dependence, cigarettes, uncomplicated; Z79.899 Other long term (current) drug therapy
CPT/HCPCS: 43239; 88305; J3010

== ENCOUNTER → 2019-03-01 | Outpatient (REF) | payer OTHER ==
[~2019-03-01] MED LIST changes: -LIDOCAINE 2% INJ 100 MG/5 ML SDV (FOR ANES.) As Ordered ONE; -NS 1,000 ML IV ONE; -PROPOFOL 200 MG/20 ML VIAL As Ordered ONE
== END ==
LOC: M SFHCLERA 14:16
PROVIDERS: ATTEND Nurse Practitioner Family
DX: R39.11 Hesitancy of micturition (principal)

== ENCOUNTER → 2019-03-12 | Outpatient (REF) | payer OTHER ==
[2019-03-12 18:42] LABS: ALBUMIN 4.1 GM/DL (3.2-5.2); ALT/SGPT 32 U/L (12-78); BILIRUBIN,TOTAL 0.3 MG/DL (0.2-1.0); BLOOD UREA NITROGEN 10 MG/DL (7-18); CALCIUM LEVEL 9.3 MG/DL (8.5-10.1); CARBON DIOXIDE LEVEL 31 MEQ/L (21-32); CHLORIDE LEVEL 103 MEQ/L (98-107); CREATININE FOR GFR 1.01 MG/DL (0.70-1.30); GLOMERULAR FILTRATION RATE > 60.0 (>60); GLUCOSE, FASTING 76 MG/DL (70-100); POTASSIUM SERUM 4.2 MEQ/L (3.5-5.1); SODIUM LEVEL 140 MEQ/L (136-145)
[2019-03-12 19:00] LABS: HEMATOCRIT 48.8 % (42.0-52.0); MEAN CORPUSCULAR HEMOGLOBIN 32.1 pg (27.0-33.0); MEAN CORPUSCULAR HGB CONC 34.8 g/dl (32.0-36.5); MEAN CORPUSCULAR VOLUME 92.1 fl (80.0-96.0); PLATELET COUNT, AUTOMATED 268 10^3/uL (150-450); WHITE BLOOD COUNT 9.3 10^3/uL (4.0-10.0)
== END ==
LOC: M SFHCPLAZ 15:43
PROVIDERS: ATTEND Physician Assistant
DX: I10 Essential (primary) hypertension (principal); Z79.1 Long term (current) use of non-steroidal anti-inflammatories (NSAID); Z80.42 Family history of malignant neoplasm of prostate
CPT/HCPCS: 36415; 80053; 85027; G0103

== ENCOUNTER 2019-06-22 09:04 | Observation (INO) | payer OTHER ==
[~2019-06-22] VITALS: Ht 182.9 cm; Wt 93.4 kg
[~2019-06-22 09:04] MED LIST changes: +OMEP1CAP73 PO; -OMEP20CA4 PO
[2019-06-22] MEDS ORDERED: OXYC10TA3 PO (09:15)
[2019-06-22] MEDS ORDERED: AMLO5TAB6 PO (09:15)
[2019-06-22 09:31] LABS: BASO # 0.1 10^3/uL (0.0-0.2); BASO % 0.7 % (0.0-1.0); EOS % 0.3 % (0.0-3.0); HEMATOCRIT 54.9 % (42.0-52.0); HEMOGLOBIN 18.6 g/dl (13.5-17.5); LYMPH % 21.1 % (24.0-44.0); MEAN CORPUSCULAR HEMOGLOBIN 30.7 pg (27.0-33.0); MEAN CORPUSCULAR HGB CONC 33.9 g/dl (32.0-36.5); MEAN CORPUSCULAR VOLUME 90.6 fl (80.0-96.0); MONO # 0.7 10^3/uL (0.0-0.8); NEUTROPHILS # 6.4 10^3/uL (1.5-8.5); NEUTROPHILS % 69.6 % (36.0-66.0); PLATELET COUNT, AUTOMATED 273 10^3/uL (150-450); RED BLOOD COUNT 6.06 10^6/uL (4.30-6.10); WHITE BLOOD COUNT 9.2 10^3/uL (4.0-10.0)
--- NOTE | 2019-06-22 09:35 | REP ---
Portable chest, 09:21 a.m., single AP view with the the patient sitting: Comparison is 07/04/2017. The lung alvarado are clear. Cardiac size is normal. The claudia, mediastinum, skeletal structures are unremarkable. There is a cervical spine stabilization plate, unchanged. Impression: Essentially negative portable chest. No interval change. Electronically Signed by Gio Beyer MD 06/22/2019 09:26 A
[2019-06-22 10:14] LABS: BLOOD UREA NITROGEN 15 MG/DL (7-18); CALCIUM LEVEL 9.6 MG/DL (8.5-10.1); CARBON DIOXIDE LEVEL 27 MEQ/L (21-32); CHLORIDE LEVEL 105 MEQ/L (98-107); CK-MB VALUE MASS 1.7 NG/ML (<3.6); CPK CREATINE PHOSPHOKINASE 111 U/L (39-308); CREATININE FOR GFR 1.14 MG/DL (0.70-1.30); GLOMERULAR FILTRATION RATE > 60.0 (>60); GLUCOSE, FASTING 99 MG/DL (70-100); MB/CK RELATIVE INDEX 1.53 (< OR =4); POTASSIUM SERUM 4.1 MEQ/L (3.5-5.1); SODIUM LEVEL 139 MEQ/L (136-145); TROPONIN I 0.16 NG/ML (< 0.10)
[2019-06-22 12:18] LABS: CK-MB VALUE MASS 2.1 NG/ML (<3.6); MB/CK RELATIVE INDEX 1.89 (< OR =4); TROPONIN I 0.21 NG/ML (< 0.10)
[2019-06-22 15:08] LABS: CK-MB VALUE MASS 2.7 NG/ML (<3.6); CPK CREATINE PHOSPHOKINASE 104 U/L (39-308); TROPONIN I 0.25 NG/ML (< 0.10)
[2019-06-22] MEDS ORDERED: MOM 30ML SUSPENSION UDC PO PRN (16:30)
[2019-06-22] MEDS ORDERED: MAALOX 30 ML SUSP *UDC PO PRN (16:30)
[2019-06-22] MEDS ORDERED: ACETAMINOPHEN TAB 650MG DOSE (2X325MG) PO PRN (16:30)
[2019-06-22] MEDS ORDERED: CLOPIDOGREL 300 MG TAB (PLAVIX) PO STA (16:32)
[2019-06-22] MEDS ORDERED: PERCOCET 5MG/325MG TAB PO PRN (16:45)
[2019-06-22] MEDS ORDERED: ASPIRIN 325 MG TAB PO ONE (16:45)
--- NOTE | 2019-06-22 16:47 | HPEPDOC ---
General Date of Admission 06/22/19 Date of Service: Jun 22, 2019 Chief Complaint The patient is a 43-year-old male admitted with a reason for visit of DIZZY. Source: Patient Exam Limitations: No limitations Timing/Duration: Other (os 4 days) Severity: Moderate Associated Symptoms: Other (, chest pain) History of Present Illness This is a 43 years old white male with past medical history of hypertension, GERD, follows up with Dr. dalal at his clinic presented with chief complaints of left-sided chest pain which is sharp in nature, radiating towards the right side persists for about 30 minutes and then followed by a dull ache over the chest.forl the rest of the day. That patient gets chest pain. He gets small apprehension but no shortness of breath, no dizziness not relieved with any medication except when he was given nitroglycerin sublingual in the ambulance he got complete relief of the chest pain. No position or exertion exacerbates the chest pain. Patient at the present time is asymptomatic and offers no new complaints now Home Medications Scheduled Omeprazole (Omeprazole) 20 Mg Capsule.dr, 20 MG PO DAILY, (Reported) [medical marijuana] , 0.25 TSP PO QHS, (Reported) powder mixes in drink Scheduled PRN Aspirin (Aspirin EC) 325 Mg Tablet.dr, 650 MG PO Q4HP PRN for PAIN, (Reported) Miscellaneous Medications Amlodipine Besylate (Amlodipine Besylate) 5 Mg Tablet, (Reported) Oxycodone HCl/Acetaminophen (Oxycodone-Acetaminophen 10-325) 1 Each Tablet, (Reported) Allergies Coded Allergies: No Known Allergies (Unverified , 10/12/18) Past Medical History Medical History Hypertension, GERD. Extensive cardiac workup done in the past. Negative Surgical History Neck fusion surgery's Family History Significant Family History: Other (, family history of heart disease, as per him, multiple members of the family at the age of 55 with heart disease) Social History * Smoker: Denies Alcohol: Denies Drugs: denies A-FIB/CHADSVASC A-FIB History Current/History of A-Fib/PAF?: No Review of Systems Constitutional: Denies: Chills, Fever, Malaise, Night Sweats, Weakness, Fa tigue, Weight Loss, Lethargy, Other Eyes: Denies: Pain, Vision change, Conjunctivae inflammation, Eyelid inflammation, Redness, Other ENT: Denies: Head Aches, Ear Pain, Dysphagia, Sinus Congestion, Post Nasal Drip, Sore Throat, Epistaxis, Other Symptoms Skin: Denies: Rash, Lesions, Jaundice, Bruising, Itching, Dry, Breakdown, Nail Changes, Other Pulmonary: Denies: Dyspnea, Cough, Pleuritic Chest Pain, Other Symptoms Cardiovascular: Reports: Chest Pain Gastrointestinal: Denies: Nausea, Vomiting, Abdominal Pain, Diarrhea, Constipation, Melena, Hematochezia, Other Symptoms Genitourinary: Denies: Dysuria, Frequency, Incontinence, Hematuria, Retention, Other Symptoms Hematologic: Denies: Bruising, Bleeding Excessively, Petecchia, Purpura, Enlarged Lymph Nodes, Other Hematologic Endocrine: Denies: Polydipsia, Polyphagia, Polyuria, Heat Intolerance, Cold Intolerance, Other Endocrine Sx Musculoskeletal: Denies: Neck Pain, Back Pain, Shoulder Pain, Arm Pain, Hand Pain, Leg Pain, Foot Pain, Joint Pain, Muscle Pain, Spasms, Other Symptoms Neurological: Denies: Weakness, Numbness, Incoordination, Change in speech, Confusion, Seizures, Other Symptoms Psych: Reports: Mood Normal; Denies: Depression, Memory Issues Physical Examination General Exam: Positive: Alert, Cooperative Eye Exam: Positive: PERRLA, Conjunctiva & lids normal ENT Exam: Positive: Atraumatic, Mucous membr. moist/pink Neck Exam: Positive: Supple Chest Exam: Positive: Clear to auscultation, Normal air movement Heart Exam: Positive: Rate Normal Abdomen Exam: Positive: Normal bowel sounds, Soft Extremity Exam: Positive: Normal pulses Skin Exam: Positive: Nl turgor and temperature Neuro Exam: Positive: Strength at 5/5 X4 ext Psych Exam: Positive: Mood NL, Oriented x 3 Vital Signs Vital Signs Date Time Temp Pulse Resp B/P (MAP) Pulse Ox O2 Delivery O2 Flow Rate FiO2 06/22/19 14:45 77 143/75 (97) 100 Room Air 06/22/19 12:00 18 06/22/19 09:13 98.0 Laboratory Data Labs 24H Laboratory Tests 2 06/22/19 09:21: Immature Granulocyte % (Auto) 0.3, Neutrophils (%) (Auto) 69.6H, Lymphocytes (%) (Auto) 21.1L, Monocytes (%) (Auto) 8.0H, Eosinophils (%) (Auto) 0.3, Basophils (%) (Auto) 0.7, Neutrophils # (Auto) 6.4, Lymphocytes # (Auto) 2.0, Monocytes # (Auto) 0.7, Eosinophils # (Auto) 0.0, Basophils # (Auto) 0.1, Nucleated Red Blood Cells % (auto) 0.0, Anion Gap 7L, Glomerular Filtration Rate > 60.0, Calcium Level 9.6, Total Creatine Kinase 111, Creatine Kinase MB 1.7, Creatine K inase MB Relative Index 1.53, Troponin I 0.16H 06/22/19 11:30: Total Creatine Kinase 111, Creatine Kinase MB 2.1, Creatine Kinase MB Relative Index 1.89, Troponin I 0.21#H 06/22/19 14:24: Total Creatine Kinase 104, Creatine Kinase MB 2.7, Creatine Kinase MB Relative Index 2.60, Troponin I 0.25H CBC/BMP Laboratory Tests 06/22/19 09:21 Problems (1) Chest pain Status: Acute Problem Text: 43 years old white male with past medical history of hypertension, history of A. fib, but in normal sinus rhythm was converted meds and in the past, presented with chief complaint of chest pain and he will he got relief with the chest pain with sublingual nitroglycerin in the ambulance. Patient's EKG is normal sinus rhythms, no acute ST-T changes. His troponins are slightly elevated. First one is 0.16, second is 0.2, 1:30 0.25 Chest x-ray negative CBC, CMP, negative Guest discussed with Dr. Sanon over the phone. Admit patient to PCU with telemetry for possible unstable angina with elevated troponin Discussed with Dr. Sanon will repeat 3 more troponins and if the values keeps going up and idea any changes in EKG the patient will be transferred to [place] [facility] for intervention. Will start aspirin, Plavix and Lovenox at full strength as per cardiology recomm endations Also start nitroglycerin paste half inch to chest wall every 6 hours for symptom relief Echocardiogram in a.m. Continue all home meds DVT prophylaxis. The patient already on full dose Lovenox Activity as tolerated Diet 2 g sodium (2) HTN (hypertension) Status: Chronic Problem Text: Continue home meds (3) Elevated troponin level Status: Acute Problem Text: Etiology is possible acute injury versus demand ischemia . We will repeat one more set of enzymes tonight and if it continues to elevated, and patient will be transferred to cardiac cath facility at [place] has been started on full dose aspirin, Plavix and Lovenox (4) Cervical spinal stenosis Status: Acute Problem Text: Continue pain management as previously. Patient has been taken at home Plan / VTE VTE Prophylaxis Ordered?: Yes STANISLAV PALACIOS MD Jun 22, 2019 16:47
[2019-06-22 18:56] LABS: CREATININE FOR GFR 1.12 MG/DL (0.70-1.30); GLOMERULAR FILTRATION RATE > 60.0 (>60)
[2019-06-22] MEDS: NITROGLYCERIN 2% OINT 1 GM *U/D* PKT TOP SCH ×2 (19:01→23:40)
[2019-06-22] MEDS: NICOTINE 21MG/24HR 1 EA TRANSDERMAL TD SCH (20:35)
[2019-06-22] MEDS: ENOXAPARIN 100MG/1ML SYRINGE (J1650) SC SCH (21:35)
--- NOTE | 2019-06-22 21:52 | ECGEPIP ---
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
--- NOTE | 2019-06-22 21:56 | ECGEPIP ---
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
--- NOTE | 2019-06-22 21:58 | ECGEPIP ---
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
[2019-06-22 22:20] VITALS: BP 135/91
[2019-06-22] MEDS: DOCUSATE SODIUM 100 MG CAP PO SCH (23:39)
[2019-06-23 04:00] VITALS: BP 120/73
[2019-06-23] MEDS: ENOXAPARIN 100MG/1ML SYRINGE (J1650) SC SCH (05:36)
[2019-06-23] MEDS: NITROGLYCERIN 2% OINT 1 GM *U/D* PKT TOP SCH (05:36)
[2019-06-23] MEDS ORDERED: ASPIRIN 325 MG TAB PO SCH (06:00)
[2019-06-23 06:42] LABS: CHOLESTEROL RISK RATIO 5.466 (<5)
[2019-06-23 08:00] VITALS: BP 131/81
[2019-06-23] MEDS ORDERED: NICO21PAT TD (08:40)
[2019-06-23] MEDS ORDERED: CLOP75TA2 PO (08:40)
[2019-06-23] MEDS ORDERED: LOVE0.8I SC (08:40)
[2019-06-23] MEDS ORDERED: NITR2OI TOP (08:40)
[2019-06-23] MEDS ORDERED: amLODIPine 5 MG TAB PO SCH (09:00)
[2019-06-23] MEDS ORDERED: OMEPRAZOLE 20 MG CAP PO SCH (09:00)
[2019-06-23] MEDS: NICOTINE 21MG/24HR 1 EA TRANSDERMAL TD SCH (09:00)
[2019-06-23] MEDS ORDERED: CLOPIDOGREL 75 MG TAB PO SCH (09:00)
[2019-06-23] MEDS: DOCUSATE SODIUM 100 MG CAP PO SCH (09:15)
[2019-06-23 09:16] VITALS: BP 131/81
[2019-06-23 10:00] VITALS: BP 133/84
--- NOTE | 2019-06-23 11:20 | DS.PDOC ---
Discharge Summary General Date of Admission Jun 22, 2019 at 09:05 Date of Discharge 06/23/19 Discharge Summary PROCEDURES PERFORMED DURING STAY: None. ADMITTING DIAGNOSES: 1. Chest pain. DISCHARGE DIAGNOSES: 1. Chest pain. #2. Unstable angina. #3. Non-ST elevation MA. #4. Hypertension, #5. Strong family history of heart disease. COMPLICATIONS/CHIEF COMPLAINT: Chest Pain. HISTORY OF PRESENT ILLNESS: 43 years old white male with past medical history of hypertension and developed chest pain since last 4 days. Patient gets chest pain on left side of chest, radiates to the right forehead intensively for 30 minutes followed by dull aches all over the chest. This time patient decided come to ED when he received nitroglycerin in the ambulance. He had a resolution of chest pain.. HOSPITAL COURSE: Is admitted with the diagnosis of chest pain, most likely secondary to unstable angina. Patient's troponin progressively increased to 0.46 from 0.18. Patient has responded very well to nitrates and hasn't strong family history of heart disease. Repeat EKG was obtained this morning which showed normal sinus rhythm with a left axis deviation, but no ST elevation. pt most likely has non-ST elevation MA and patient was started on full dose aspirin, Plavix and Lovenox since admission last night. Considering all the risk factors [facility] in [place] was called and patient was transferred there for percutaneous intervention and possible stent placement if needed. Condition on discharge was stable, patient still had some dull ache on the chest but no acute chest pain. Once discharged from there. Patient will follow with /leslee as an outpatient . DISCHARGE MEDICATIONS: Please see below. ALLERGIES: Please see below. PHYSICAL EXAMINATION ON DISCHARGE: VITAL SIGNS: Please see below. GENERAL: Normal , HEENT: [place] extraocular muscles intact NECK: Supple CARDIOVASCULAR EXAMINATION: S1, S2, regular RESPIRATORY EXAMINATION: Clear to A&P ABDOMINAL EXAMINATION: Benign EXTREMITIES: No clubbing, cyanosis, edema SKIN: Normal NEUROLOGICAL EXAMINATION: . No focal motor sensory deficit PSYCHIATRIC EXAMINATION: Normal LABORATORY DATA: Please see below. IMAGING: Chest x-ray normal PROGNOSIS: Good ACTIVITY: As tolerated. DIET: Nothing by mouth DISCHARGE PLAN: Discharge [facility] DISPOSITION: 02 Xfer To Acute Hosp. DISCHARGE INSTRUCTIONS: 1. As per discharge instructions. ITEMS TO FOLLOWUP ON ON OUTPATIENT: 1. Follow up with Dr. Sanon once discharged from [facility]. DISCHARGE CONDITION: Stable. Time is spent on this discharge was 52 minutes. Vital Signs/I&Os Vital Signs Date Time Temp Pulse Resp B/P (MAP) Pulse Ox O2 Delivery O2 Flow Rate FiO2 06/23/19 10:00 98.2 93 20 133/84 (100) 97 Room Air I&O- Last 24 Hours up to 6 AM 06/23/19 06:00 Intake Total 100 ml Output Total 0 ml Balance 100 ml Laboratory Data Labs 24H Laboratory Tests 2 06/22/19 11:30: Total Creatine Kinase 111, Creatine Kinase MB 2.1, Creatine Kinase MB Relative Index 1.89, Troponin I 0.21#H 06/22/19 14:24: Total Creatine Kinase 104, Creatine Kinase MB 2.7, Creatine Kinase MB Relative Index 2.60, Troponin I 0.25H, Glomerular Filtration Rate > 60.0 06/22/19 19:17: Troponin I 0.18#H 06/23/19 02:02: Troponin I 0.45#H 06/23/19 06:01: Estimated Mean Plasma Glucose 126H, Hemoglobin A1c 6.0, Troponin I 0.46H, Triglycerides Level 205H, Total Cholesterol 164, LDL Cholesterol 93, Non-HDL Cholesterol (LDL + VLDL) 134, Total HDL Cholesterol 30L, Cholesterol/HDL Ratio 5.466H CBC/BMP Laboratory Tests 06/22/19 14:24 Discharge Medications Scheduled Amlodipine Besylate (Amlodipine Besylate) 5 Mg Tablet, 5 MG PO DAILY, (Reported) Clopidogrel Bisulfate (Clopidogrel) 75 Mg Tablet, 75 MG PO DAILY Enoxaparin Sodium (Lovenox) 100 Mg/1 Ml Syringe, 100 MG SC Q12H Nicotine (Nicotine Patch) 21 Mg Patch.td24, 1 PATCH TD DAILY Nitroglycerin (Nitro-Bid) 1 Gm Oint...g., 0.5 GM TOP Q6H Omeprazole (Omeprazole) 20 Mg Capsule.dr, 20 MG PO DAILY, (Reported) Scheduled PRN Aspirin (Aspirin EC) 325 Mg Tablet.dr, 650 MG PO Q6H PRN for PAIN, (Reported) Oxycodone HCl/Acetaminophen (Oxycodone-Acetaminophen 10-325) 1 Each Tablet, 1 TAB PO Q12H PRN for PAIN, (Reported) Allergies Coded Allergies: No Known Allergies (Unverified , 10/12/18) STANISLAV PALACIOS MD Jun 23, 2019 11:20
--- NOTE | 2019-06-23 16:46 | ECGEPIP ---
[facility] Test Date: 2019-06-23 Pat Name: BILL MICHAUD Department: Room: [place] [address] Gender: Male [employer]ist: MELECIO : 1975 Requested By: OLI DAMON D.O. Order Number: [id number] Reading MD: Shreyas Bacon Measurements Intervals [place] Rate: 89 P: 62 VT: 147 QRS: -78 QRSD: 113 T: 62 QT: 345 QTc: 420 Interpretive Statements SINUS RHYTHM MARKED LEFT AXIS DEVIATION MODERATE INTRAVENTRICULAR CONDUCTION DELAY Electronically Signed on 06-23-2019 16:45:41 EST by Shreyas Bacon
== END 2019-06-23 10:10 | disposition short-term general hospital (02) ==
LOC: M ED 09:04 → EDBD 09:04 → M ED INP 09:05 → ENRESERV 21:15 → M PCU 23:16
PROVIDERS: ADMIT Internal Medicine; ATTEND Internal Medicine
DX: I21.4 Non-ST elevation (NSTEMI) myocardial infarction (principal); I20.0 Unstable angina; R74.8 Abnormal levels of other serum enzymes; I45.10 Unspecified right bundle-branch block; I10 Essential (primary) hypertension; K21.9 Gastro-esophageal reflux disease without esophagitis; M48.02 Spinal stenosis, cervical region; Z82.49 Family history of ischemic heart disease and other diseases of the circulatory system; Z79.899 Other long term (current) drug therapy; Z79.02 Long term (current) use of antithrombotics/antiplatelets
CPT/HCPCS: 36415; 71045; 80048; 80061; 82550; 82553; 83036; 85025; 93005; 93041; 94760; 96372; 99285; J1650

== ENCOUNTER → 2019-08-17 | Outpatient (CLI) | payer OTHER ==
[~2019-08-17] MED LIST changes: +AMLO5TAB6 PO; +CLOP75TA2 PO; +LOVE0.8I SC; +NICO21PAT TD; +NITR2OI TOP; +OXYC10TA3 PO
[2019-08-17 16:53] LABS: BLOOD UREA NITROGEN 10 MG/DL (7-18); CREATININE FOR GFR 0.94 MG/DL (0.70-1.30); GLOMERULAR FILTRATION RATE > 60.0 (>60)
== END ==
LOC: M LRY 14:38
PROVIDERS: ATTEND Orthopaedic Surgery
DX: Z01.812 Encounter for preprocedural laboratory examination (principal)

== ENCOUNTER → 2020-01-23 | Outpatient (REF) | payer OTHER ==
[~2020-01-23] MED LIST changes: +AMLO1TAB24 PO; -AMLO5TAB6 PO
[2020-01-23 19:47] LABS: APPEARANCE, URINE CLEAR (CLEAR); BACTERIA, URINE AUTO NEGATIVE (NEGATIVE); BILIRUBIN, URINE AUTO NEGATIVE (NEGATIVE); BLOOD, URINE BLOOD NEGATIVE (NEGATIVE); COLOR, URINE YELLOW (YELLOW); GLUCOSE, URINE (UA) AUTO NEGATIVE (NEGATIVE); KETONE, URINE AUTO NEGATIVE (NEGATIVE); LEUKOCYTE ESTERASE, URINE AUTO TRACE (NEGATIVE); MUCUS, URINE SMALL (NEGATIVE); NITRITE, URINE AUTO NEGATIVE (NEGATIVE); PROTEIN, URINE AUTO NEGATIVE (NEGATIVE); RBC, URINE AUTO 1 /HPF (0-3); SPECIFIC GRAVITY URINE AUTO 1.017 (1.002-1.035); SQUAMOUS EPITHELIAL CELL UR AU 0 /HPF (0-6); UROBILINOGEN, URINE AUTO 0.2 mg/dL (0.0-2.0); WBC, URINE AUTO 2 /HPF (0-3)
== END ==
LOC: M SMT 17:12
PROVIDERS: ATTEND Nurse Practitioner Women's Health
DX: N39.0 Urinary tract infection, site not specified (principal)

== ENCOUNTER → 2020-05-07 | Outpatient (REF) | payer OTHER | LOC: M LABSMT 09:22 | PROVIDERS: ATTEND Urology | DX: N40.1 Benign prostatic hyperplasia with lower urinary tract symptoms (principal) ==

== ENCOUNTER → 2020-05-19 | Outpatient (REF) | payer OTHER | LOC: M LAB REF 13:35 | PROVIDERS: ATTEND Dermatology | DX: L57.0 Actinic keratosis (principal) ==

== ENCOUNTER → 2020-07-25 | Outpatient (CLI) | payer OTHER ==
[2020-07-25 14:16] LABS: BASO # 0.1 10^3/uL (0.0-0.2); BASO % 0.7 % (0.0-1.0); EOS # 0.1 10^3/uL (0.0-0.5); EOS % 0.7 % (0.0-3.0); HEMATOCRIT 53.3 % (42.0-52.0); HEMOGLOBIN 17.7 g/dl (13.5-17.5); LYMPH # 3.7 10^3/uL (1.5-5.0); LYMPH % 38.8 % (24.0-44.0); MEAN CORPUSCULAR HEMOGLOBIN 31.5 pg (27.0-33.0); MEAN CORPUSCULAR HGB CONC 33.2 g/dl (32.0-36.5); MEAN CORPUSCULAR VOLUME 94.8 fl (80.0-96.0); MONO # 0.9 10^3/uL (0.0-0.8); MONO % 9.9 % (2.0-8.0); NEUTROPHILS # 4.7 10^3/uL (1.5-8.5); NEUTROPHILS % 49.7 % (36.0-66.0); PLATELET COUNT, AUTOMATED 280 10^3/uL (150-450); RED BLOOD COUNT 5.62 10^6/uL (4.30-6.10); WHITE BLOOD COUNT 9.4 10^3/uL (4.0-10.0)
[2020-07-25 14:53] LABS: ALBUMIN 4.3 GM/DL (3.2-5.2); ALT/SGPT 26 U/L (12-78); BILIRUBIN,TOTAL 0.4 MG/DL (0.2-1.0); BLOOD UREA NITROGEN 16 MG/DL (7-18); CALCIUM LEVEL 9.5 MG/DL (8.5-10.1); CARBON DIOXIDE LEVEL 32 MEQ/L (21-32); CHLORIDE LEVEL 105 MEQ/L (98-107); CHOLESTEROL LEVEL 208 MG/DL (<200); CHOLESTEROL RISK RATIO 5.777 (<5); FREE T4 0.88 NG/DL (0.76-1.46); GLOMERULAR FILTRATION RATE > 60.0 (>60); GLUCOSE, FASTING 91 MG/DL (70-100); HDL CHOLESTEROL 36 MG/DL (>40); LDL CHOLESTEROL 127 MG/DL (<100); NON-HDL-C 172 MG/DL; POTASSIUM SERUM 4.5 MEQ/L (3.5-5.1); SODIUM LEVEL 140 MEQ/L (136-145); TOTAL PROTEIN 7.7 GM/DL (6.4-8.2); TRIGLYCERIDES LEVEL 226 MG/DL (<150)
[2020-07-26 15:07] LABS: Lyme Disease IgG/IgM Antibodie <0.91 ISR (0.00-0.90); Lyme Disease IgM Ab Quantitati <0.80 index (0.00-0.79)
== END ==
LOC: M WUC 09:50
PROVIDERS: ATTEND Nurse Practitioner Family
DX: S30.860A Insect bite (nonvenomous) of lower back and pelvis, initial encounter (principal); R53.82 Chronic fatigue, unspecified; Z13.220 Encounter for screening for lipoid disorders

== ENCOUNTER → 2020-11-26 | Outpatient (CLI) | payer OTHER ==
[2020-11-26 16:47] LABS: BASO # 0.1 10^3/uL (0.0-0.2); EOS # 0.2 10^3/uL (0.0-0.5); HEMATOCRIT 50.1 % (42.0-52.0); HEMOGLOBIN 16.9 g/dl (13.5-17.5); LYMPH # 3.3 10^3/uL (1.5-5.0); LYMPH % 43.5 % (24.0-44.0); MEAN CORPUSCULAR HEMOGLOBIN 31.8 pg (27.0-33.0); MEAN CORPUSCULAR HGB CONC 33.7 g/dl (32.0-36.5); MEAN CORPUSCULAR VOLUME 94.4 fl (80.0-96.0); MONO # 0.5 10^3/uL (0.0-0.8); MONO % 6.5 % (2.0-8.0); NEUTROPHILS # 3.6 10^3/uL (1.5-8.5); NEUTROPHILS % 46.7 % (36.0-66.0); PLATELET COUNT, AUTOMATED 257 10^3/uL (150-450); RED BLOOD COUNT 5.31 10^6/uL (4.30-6.10); WHITE BLOOD COUNT 7.6 10^3/uL (4.0-10.0)
[2020-11-26 16:57] LABS: INR 0.9; PROTHROMBIN TIME 12.3 SECONDS (12.5-14.3)
[2020-11-26 17:15] LABS: BLOOD UREA NITROGEN 13 MG/DL (7-18); CARBON DIOXIDE LEVEL 30 MEQ/L (21-32); CHLORIDE LEVEL 105 MEQ/L (98-107); CREATININE FOR GFR 0.98 MG/DL (0.70-1.30); GLOMERULAR FILTRATION RATE > 60.0 (>60); GLUCOSE, FASTING 120 MG/DL (70-100); POTASSIUM SERUM 4.2 MEQ/L (3.5-5.1); SODIUM LEVEL 138 MEQ/L (136-145)
== END ==
LOC: M WUC 11:27
PROVIDERS: ATTEND Student in an Organized Health Care Education/Training Program
DX: Z01.818 Encounter for other preprocedural examination (principal)

== ENCOUNTER → 2020-11-27 | Outpatient (REF) | payer OTHER | LOC: M WUC 15:55 | PROVIDERS: ATTEND Student in an Organized Health Care Education/Training Program | DX: Z01.818 Encounter for other preprocedural examination (principal) ==

== ENCOUNTER → 2021-02-05 | Outpatient (REF) | payer OTHER | LOC: M WUC 16:17 | PROVIDERS: ATTEND Urology | DX: N40.1 Benign prostatic hyperplasia with lower urinary tract symptoms (principal) ==

== ENCOUNTER → 2021-09-11 | Outpatient (CLI) | payer OTHER ==
[2021-09-11 16:12] LABS: BASO # 0.1 10^3/uL (0.0-0.2); BASO % 0.7 % (0.0-1.0); EOS % 0.4 % (0.0-3.0); HEMATOCRIT 52.9 % (42.0-52.0); HEMOGLOBIN 17.9 g/dl (13.5-17.5); LYMPH % 30.2 % (24.0-44.0); MEAN CORPUSCULAR HEMOGLOBIN 32.5 pg (27.0-33.0); MEAN CORPUSCULAR HGB CONC 33.8 g/dl (32.0-36.5); MONO # 0.9 10^3/uL (0.0-0.8); MONO % 8.9 % (2.0-8.0); NEUTROPHILS # 5.9 10^3/uL (1.5-8.5); NEUTROPHILS % 59.6 % (36.0-66.0); PLATELET COUNT, AUTOMATED 305 10^3/uL (150-450); RED BLOOD COUNT 5.51 10^6/uL (4.30-6.10); WHITE BLOOD COUNT 9.9 10^3/uL (4.0-10.0)
[2021-09-11 16:35] LABS: HEMOGLOBIN A1c 5.2 %
[2021-09-11 16:52] LABS: ALBUMIN 4.2 GM/DL (3.2-5.2); ALT/SGPT 34 U/L (12-78); BILIRUBIN,TOTAL 0.5 MG/DL (0.2-1.0); BLOOD UREA NITROGEN 15 MG/DL (7-18); CARBON DIOXIDE LEVEL 28 MEQ/L (21-32); CHLORIDE LEVEL 106 MEQ/L (98-107); CREATININE FOR GFR 1.04 MG/DL (0.70-1.30); GLOMERULAR FILTRATION RATE > 60.0 (>60); GLUCOSE, FASTING 120 MG/DL (70-100); POTASSIUM SERUM 4.2 MEQ/L (3.5-5.1); SODIUM LEVEL 140 MEQ/L (136-145); TOTAL PROTEIN 7.3 GM/DL (6.4-8.2)
[2021-09-11 16:55] LABS: TOTAL 25(OH) VITAMIN D 22.4 NG/ML (30.0-100.0); VITAMIN B12 LEVEL 422 PG/ML (247-911)
[2021-09-11 16:56] LABS: FOLATE 15.3 NG/ML (>5.4)
== END ==
LOC: M WUC 10:25
PROVIDERS: ATTEND Family Medicine
DX: R07.9 Chest pain, unspecified (principal); R06.02 Shortness of breath; R53.82 Chronic fatigue, unspecified; E66.9 Obesity, unspecified

== ENCOUNTER → 2021-09-18 | Outpatient (CLI) | payer OTHER | LOC: M CARPUL 09:14 | PROVIDERS: ATTEND Family Medicine | DX: R06.02 Shortness of breath (principal) ==

== ENCOUNTER → 2021-10-19 | Outpatient (REF) | payer OTHER ==
[2021-10-20 12:05] LABS: APPEARANCE, URINE HAZY (CLEAR); BACTERIA, URINE AUTO NEGATIVE (NEGATIVE); BILIRUBIN, URINE AUTO NEGATIVE (NEGATIVE); BLOOD, URINE BLOOD 1+ (NEGATIVE); COLOR, URINE AMBER (YELLOW); GLUCOSE, URINE (UA) AUTO NEGATIVE (NEGATIVE); KETONE, URINE AUTO TRACE mg/dL (NEGATIVE); LEUKOCYTE ESTERASE, URINE AUTO 2+ (NEGATIVE); MUCUS, URINE SMALL (NEGATIVE); NITRITE, URINE AUTO NEGATIVE (NEGATIVE); PROTEIN, URINE AUTO 1+ mg/dL (NEGATIVE); RBC, URINE AUTO 4 /HPF (0-3); SPECIFIC GRAVITY URINE AUTO 1.029 (1.002-1.035); SQUAMOUS EPITHELIAL CELL UR AU 0 /HPF (0-6); UROBILINOGEN, URINE AUTO 0.2 mg/dL (0.0-2.0); WBC, URINE AUTO 94 /HPF (0-3)
[2021-10-20 14:12] LABS: GC DNA AMPLIFICATION NEGATIVE (NEGATIVE)
== END ==
LOC: M SFHCLERA 11:43
PROVIDERS: ATTEND Family Medicine
DX: R39.15 Urgency of urination (principal); R31.9 Hematuria, unspecified

== ENCOUNTER → 2021-11-11 | Outpatient (CLI) | payer OTHER | LOC: M RAD 08:32 | PROVIDERS: ATTEND Family Medicine | DX: R06.02 Shortness of breath (principal); R07.9 Chest pain, unspecified ==

== ENCOUNTER → 2021-12-11 | Outpatient (REF) | payer OTHER ==
[2021-12-11 17:15] LABS: APPEARANCE, URINE HAZY (CLEAR); BACTERIA, URINE AUTO NEGATIVE (NEGATIVE); BILIRUBIN, URINE AUTO NEGATIVE (NEGATIVE); BLOOD, URINE BLOOD NEGATIVE (NEGATIVE); COLOR, URINE AMBER (YELLOW); GLUCOSE, URINE (UA) AUTO NEGATIVE (NEGATIVE); KETONE, URINE AUTO TRACE mg/dL (NEGATIVE); LEUKOCYTE ESTERASE, URINE AUTO NEGATIVE (NEGATIVE); MUCUS, URINE LARGE (NEGATIVE); NITRITE, URINE AUTO NEGATIVE (NEGATIVE); PROTEIN, URINE AUTO NEGATIVE (NEGATIVE); RBC, URINE AUTO 0 /HPF (0-3); SPECIFIC GRAVITY URINE AUTO 1.026 (1.002-1.035); SQUAMOUS EPITHELIAL CELL UR AU 0 /HPF (0-6); WBC, URINE AUTO 0 /HPF (0-3)
== END ==
LOC: M SMT 16:34
PROVIDERS: ATTEND Urology
DX: N30.00 Acute cystitis without hematuria (principal)

== ENCOUNTER → 2022-01-20 | Outpatient (REF) | payer OTHER ==
[2022-01-20 19:09] LABS: APPEARANCE, URINE MANUAL CLEAR (CLEAR); COLOR, URINE MANUAL YELLOW (YELLOW)
[2022-01-20 19:10] LABS: BILIRUBIN, URINE MANUAL NEGATIVE (NEGATIVE); BLOOD URINE MANUAL NEGATIVE (NEGATIVE); GLUCOSE, URINE (UA) MANUAL NEGATIVE (NEGATIVE); KETONE, URINE MANUAL NEGATIVE (NEGATIVE); LEUKOCYTE ESTERASE, URINE MAN NEGATIVE (NEGATIVE); NITRITE, URINE MANUAL NEGATIVE (NEGATIVE); PROTEIN, URINE MANUAL NEGATIVE (NEGATIVE); UROBILINOGEN, URINE MANUAL NORMAL (NORMAL)
== END ==
LOC: M SMT 17:05
PROVIDERS: ATTEND Urology
DX: Z87.440 Personal history of urinary (tract) infections (principal)

== ENCOUNTER → 2022-04-30 | Outpatient (CLI) | payer OTHER | LOC: M RAD 15:27 | PROVIDERS: ATTEND Family Medicine | DX: R91.1 Solitary pulmonary nodule (principal) ==

== ENCOUNTER 2022-06-08 18:43 | Inpatient (IN) | payer OTHER ==
[~2022-06-08] VITALS: Ht 182.9 cm; Wt 102.3 kg
[2022-06-08 19:53] LABS: BASO # 0.1 10^3/uL (0.0-0.2); BASO % 0.4 % (0.0-1.0); EOS # 0.1 10^3/uL (0.0-0.5); EOS % 0.3 % (0.0-3.0); HEMATOCRIT 44.3 % (42.0-52.0); HEMOGLOBIN 15.3 g/dl (13.5-17.5); LYMPH # 2.3 10^3/uL (1.5-5.0); LYMPH % 15.1 % (24.0-44.0); MEAN CORPUSCULAR HEMOGLOBIN 32.1 pg (27.0-33.0); MEAN CORPUSCULAR HGB CONC 34.5 g/dl (32.0-36.5); MEAN CORPUSCULAR VOLUME 93.1 fl (80.0-96.0); MONO % 6.3 % (2.0-8.0); NEUTROPHILS # 11.9 10^3/uL (1.5-8.5); NEUTROPHILS % 77.3 % (36.0-66.0); PLATELET COUNT, AUTOMATED 246 10^3/uL (150-450); RED BLOOD COUNT 4.76 10^6/uL (4.30-6.10); WHITE BLOOD COUNT 15.3 10^3/uL (4.0-10.0)
[2022-06-08 20:28] LABS: FREE T4 0.86 NG/DL (0.89-1.76)
[2022-06-08 20:29] LABS: THYROID STIMULATING HORMONE 1.691 uIU/ML (0.55-4.78)
[2022-06-08 20:35] LABS: CK-MB VALUE MASS < 1.0 NG/ML (<3.6)
[2022-06-08 20:37] LABS: BLOOD UREA NITROGEN 16 MG/DL (9-23); CARBON DIOXIDE LEVEL 27 MMOL/L (20-31); CHLORIDE LEVEL 105 MMOL/L (98-107); CREATININE FOR GFR 0.94 MG/DL (0.70-1.30); GLOMERULAR FILTRATION RATE > 60.0 (>60); GLUCOSE, FASTING 97 MG/DL (60-100); POTASSIUM SERUM 4.2 MMOL/L (3.5-5.1); SODIUM LEVEL 140 MMOL/L (136-145)
[2022-06-08 20:40] LABS: CPK CREATINE PHOSPHOKINASE 103 U/L (46-171); MB/CK RELATIVE INDEX 0.97 (< OR =4)
[2022-06-08 21:54] LABS: CK-MB VALUE MASS < 1.0 NG/ML (<3.6)
[2022-06-08 21:56] LABS: CPK CREATINE PHOSPHOKINASE 103 U/L (46-171); MB/CK RELATIVE INDEX 0.97 (< OR =4)
[2022-06-08 22:09] LABS: ALBUMIN 3.9 G/DL (3.2-5.2); ALKALINE PHOSPHATASE 72 U/L (46-116); ALT/SGPT 24 U/L (7.0-40); AST/SGOT 19 U/L (<34); BILIRUBIN,DIRECT < 0.1 MG/DL (<0.4); BILIRUBIN,TOTAL 0.2 MG/DL (0.3-1.2); TOTAL PROTEIN 6.3 G/DL (5.7-8.2)
[2022-06-08] MEDS ORDERED: NITR4TASL SL (22:34)
[2022-06-08] MEDS ORDERED: METO50TA7 PO (22:34)
[2022-06-08] MEDS ORDERED: BUSP10TA PO (22:34)
[2022-06-08] MEDS ORDERED: FLOM0.4C39 PO (22:34)
[2022-06-08] MEDS ORDERED: CLOP75TA2 PO (22:34)
[2022-06-08] MEDS ORDERED: ASPI-161 PO (22:34)
[2022-06-08] MEDS ORDERED: OMEG10002 PO (22:34)
[2022-06-08] MEDS ORDERED: AMLO1TAB25 PO (22:34)
[2022-06-08] MEDS ORDERED: LEXA1TAB PO (22:34)
[2022-06-08] MEDS ORDERED: HOME MED LIST COMPLETE! XX SCH (22:35)
[2022-06-08] MEDS: NS 1,000 ML IV SCH (23:23)
[2022-06-09] MEDS: NS 1,000 ML IV SCH (06:21)
[2022-06-09 06:29] LABS: HEMOGLOBIN 14.6 g/dl (13.5-17.5); MEAN CORPUSCULAR HEMOGLOBIN 31.7 pg (27.0-33.0); MEAN CORPUSCULAR VOLUME 93.5 fl (80.0-96.0); PLATELET COUNT, AUTOMATED 220 10^3/uL (150-450)
[2022-06-09 07:01] LABS: ALBUMIN 3.5 G/DL (3.2-5.2); ALKALINE PHOSPHATASE 65 U/L (46-116); ALT/SGPT 22 U/L (7.0-40); AST/SGOT 17 U/L (<34); BILIRUBIN,TOTAL 0.4 MG/DL (0.3-1.2); BLOOD UREA NITROGEN 16 MG/DL (9-23); CALCIUM LEVEL 8.7 MG/DL (8.5-10.1); CARBON DIOXIDE LEVEL 27 MMOL/L (20-31); CHLORIDE LEVEL 108 MMOL/L (98-107); CREATININE FOR GFR 0.83 MG/DL (0.70-1.30); GLOMERULAR FILTRATION RATE > 60.0 (>60); GLUCOSE, FASTING 89 MG/DL (60-100); POTASSIUM SERUM 4.3 MMOL/L (3.5-5.1); SODIUM LEVEL 141 MMOL/L (136-145); TOTAL PROTEIN 5.9 G/DL (5.7-8.2)
[2022-06-09 07:37] VITALS: BP 109/59
[2022-06-09 08:24] VITALS: BP 119/74
[2022-06-09] MEDS ORDERED: ASPIRIN 81MG ENTERIC TABLET PO SCH (09:00)
[2022-06-09] MEDS ORDERED: TAMSULOSIN 0.4 MG CAP PO SCH (09:00)
[2022-06-09] MEDS ORDERED: METOPROLOL TART 25 MG TABLET PO SCH (09:00)
[2022-06-09] MEDS ORDERED: OMEPRAZOLE 20MG CAP PO SCH (09:00)
[2022-06-09] MEDS ORDERED: ENOXAPARIN 40MG/0.4ML SYRINGE (J1650 PER 10MG) SC SCH (09:00)
[2022-06-09] MEDS ORDERED: ESCITALOPRAM OXALATE 10 MG TAB (LEXAPRO) PO SCH (09:00)
[2022-06-09] MEDS ORDERED: busPIRone 10 MG TAB PO SCH (09:00)
[2022-06-09] MEDS ORDERED: CLOPIDOGREL 75 MG TAB PO SCH (09:00)
== END 2022-06-09 10:29 | disposition home or self-care (01) | DRG 204 ==
LOC: M ED 18:43 → EDBD 18:43 → M ED INP 22:26
PROVIDERS: ADMIT Family Medicine; ATTEND Family Medicine
DX: R55 Syncope and collapse (principal); I10 Essential (primary) hypertension; F17.210 Nicotine dependence, cigarettes, uncomplicated; F41.8 Other specified anxiety disorders; I25.10 Atherosclerotic heart disease of native coronary artery without angina pectoris; Z79.899 Other long term (current) drug therapy; Z95.2 Presence of prosthetic heart valve; F32.A Depression, unspecified; N40.0 Benign prostatic hyperplasia without lower urinary tract symptoms

== ENCOUNTER → 2022-09-15 | Outpatient (CLI) | payer OTHER ==
[~2022-09-15] MED LIST changes: +AMLO1TAB25 PO; +ASPI-161 PO; +BUSP10TA PO; +FLOM0.4C39 PO; +LEXA1TAB PO; +METO50TA7 PO; +NITR4TASL SL; +OMEG10002 PO
== END ==
LOC: M WUC 11:32
PROVIDERS: ATTEND Urology
DX: Z13.79 Encounter for other screening for genetic and chromosomal anomalies (principal); Z80.42 Family history of malignant neoplasm of prostate

== ENCOUNTER → 2022-10-12 | Outpatient (CLI) | payer OTHER | LOC: M RAD 09:44 | PROVIDERS: ATTEND Urology | DX: Z87.440 Personal history of urinary (tract) infections (principal) ==

== ENCOUNTER → 2023-05-03 | Outpatient (CLI) | payer OTHER ==
[2023-05-03 17:01] LABS: BLOOD UREA NITROGEN 13 MG/DL (9-23); CREATININE FOR GFR 0.88 MG/DL (0.70-1.30); GLOMERULAR FILTRATION RATE > 60.0 (>60)
== END ==
LOC: M WUC 11:42
PROVIDERS: ATTEND Family Medicine
DX: F17.210 Nicotine dependence, cigarettes, uncomplicated (principal); R91.1 Solitary pulmonary nodule

== ENCOUNTER → 2023-05-06 | Outpatient (CLI) | payer OTHER ==
[~2023-05-06] MED LIST changes: +ISOVUE-370 76% 100ML VIAL ONE
== END ==
LOC: M PLAIMG 08:02
PROVIDERS: ATTEND Family Medicine
DX: R91.1 Solitary pulmonary nodule (principal); F17.210 Nicotine dependence, cigarettes, uncomplicated
CPT/HCPCS: 71260; Q9967

== ENCOUNTER → 2023-05-31 | Outpatient (CLI) | payer OTHER ==
[~2023-05-31] MED LIST changes: -ISOVUE-370 76% 100ML VIAL ONE
[2023-05-31 17:28] LABS: ALKALINE PHOSPHATASE 80 U/L (46-116); ALT/SGPT 26 U/L (7.0-40); AST/SGOT 18 U/L (<34); BILIRUBIN,TOTAL 0.3 MG/DL (0.3-1.2); BLOOD UREA NITROGEN 14 MG/DL (9-23); CALCIUM LEVEL 8.8 MG/DL (8.5-10.1); CARBON DIOXIDE LEVEL 28 MMOL/L (20-31); CHLORIDE LEVEL 107 MMOL/L (98-107); CHOLESTEROL LEVEL 180 MG/DL (<200); CHOLESTEROL RISK RATIO 4.76 (<5); CREATININE FOR GFR 0.83 MG/DL (0.70-1.30); GLOMERULAR FILTRATION RATE > 60.0 (>60); GLUCOSE, FASTING 119 MG/DL (60-100); HDL CHOLESTEROL 37.8 MG/DL (>40); LDL CHOLESTEROL 90.8 MG/DL (<100); NON-HDL-C 142.2 MG/DL; POTASSIUM SERUM 4.1 MMOL/L (3.5-5.1); SODIUM LEVEL 140 MMOL/L (136-145); TOTAL PROTEIN 6.7 G/DL (5.7-8.2); TRIGLYCERIDES LEVEL 257 MG/DL (<150)
[2023-05-31 17:34] LABS: HEMATOCRIT 46.7 % (42.0-52.0); HEMOGLOBIN 15.9 g/dl (13.5-17.5); MEAN CORPUSCULAR HEMOGLOBIN 32.2 pg (27.0-33.0); MEAN CORPUSCULAR VOLUME 94.5 fl (80.0-96.0); PLATELET COUNT, AUTOMATED 278 10^3/uL (150-450); RED BLOOD COUNT 4.94 10^6/uL (4.30-6.10); WHITE BLOOD COUNT 7.7 10^3/uL (4.0-10.0)
== END ==
LOC: M WUC 12:41
PROVIDERS: ATTEND Internal Medicine Cardiovascular Disease
DX: I25.10 Atherosclerotic heart disease of native coronary artery without angina pectoris (principal); I25.84 Coronary atherosclerosis due to calcified coronary lesion

== ENCOUNTER → 2023-07-14 | Outpatient (CLI) | payer OTHER ==
[~2023-07-14] MED LIST changes: -ASPI-161 PO; +ASPI-615 PO
== END ==
LOC: M SOG 08:48
PROVIDERS: ATTEND Physician Assistant
DX: Z53.9 Procedure and treatment not carried out, unspecified reason (principal)

== ENCOUNTER → 2023-09-09 | Outpatient (REF) | payer OTHER | LOC: M LABWUC 16:36 | PROVIDERS: ATTEND Urology | DX: Z80.42 Family history of malignant neoplasm of prostate (principal) ==

== ENCOUNTER → 2024-07-09 | Outpatient (CLI) | payer OTHER ==
[2024-07-09 12:28] LABS: BASO # 0.1 10^3/uL (0.0-0.2); BASO % 1.3 % (0.0-1.0); EOS # 0.3 10^3/uL (0.0-0.5); EOS % 3.6 % (0.0-3.0); HEMATOCRIT 46.2 % (42.0-52.0); HEMOGLOBIN 15.8 g/dl (13.5-17.5); LYMPH # 2.6 10^3/uL (1.5-5.0); LYMPH % 30.2 % (24.0-44.0); MEAN CORPUSCULAR HEMOGLOBIN 31.6 pg (27.0-33.0); MEAN CORPUSCULAR HGB CONC 34.2 g/dl (32.0-36.5); MEAN CORPUSCULAR VOLUME 92.4 fl (80.0-96.0); MONO # 0.6 10^3/uL (0.0-0.8); MONO % 6.6 % (2.0-8.0); NEUTROPHILS % 58.1 % (36.0-66.0); PLATELET COUNT, AUTOMATED 290 10^3/uL (150-450); WHITE BLOOD COUNT 8.6 10^3/uL (4.0-10.0)
[2024-07-09 12:40] LABS: HEMOGLOBIN A1c 5.3 % (4.0-6.0)
[2024-07-09 12:57] LABS: ALBUMIN 3.8 G/DL (3.2-5.2); ALKALINE PHOSPHATASE 85 U/L (40-129); ALT/SGPT 22 U/L (7.0-40); AST/SGOT 19 U/L (<34); BILIRUBIN,TOTAL 0.3 MG/DL (0.3-1.2); BLOOD UREA NITROGEN 13 MG/DL (9-23); CALCIUM LEVEL 8.9 MG/DL (8.5-10.1); CARBON DIOXIDE LEVEL 29 MMOL/L (20-31); CHLORIDE LEVEL 106 MMOL/L (98-107); CHOLESTEROL LEVEL 168 MG/DL (<200); CHOLESTEROL RISK RATIO 4.61 (<5); GLOMERULAR FILTRATION RATE > 60.0 (>60); GLUCOSE, FASTING 111 MG/DL (60-100); HDL CHOLESTEROL 36.4 MG/DL (>40); NON-HDL-C 131.6 MG/DL; POTASSIUM SERUM 4.5 MMOL/L (3.5-5.1); SODIUM LEVEL 140 MMOL/L (136-145); TOTAL PROTEIN 6.8 G/DL (5.7-8.2); TRIGLYCERIDES LEVEL 258 MG/DL (<150)
== END ==
LOC: M WUC 09:33
PROVIDERS: ATTEND Family Medicine
DX: Z00.00 Encounter for general adult medical examination without abnormal findings (principal)